=== PATIENT | female | born 1985 | race Caucasian/White ===

== ENCOUNTER → 2019-05-27 21:06 | Outpatient (CLI) | payer MEDICAID, SELFPAY ==
[2019-05-27 22:32] LABS: hCG Titer Quant., Serum 171 mIU/mL (1-3)
== END ==
PROVIDERS: Family Provider Family Medicine; PCP Family Medicine; Visit Provider Obstetrics & Gynecology
DX: O20.0 Threatened abortion (principal); Z3A.00 Weeks of gestation of pregnancy not specified
CPT/HCPCS: 36415; 84702

== ENCOUNTER 2019-06-06 12:49 | Emergency (ER) | payer MEDICAID, SELFPAY ==
[2019-06-06 12:50] VITALS: BP 108/66; PULSE 91; RESP 18; TEMP 36.8; O2SAT 99; BMI 28.5
[2019-06-06 14:02] LABS: Bacteria 0 SEEN /hpf (None Seen); Color, Urine Yellow (Yellow); Glucose, Dipstick Normal (Normal); Ketone-Dipstick Negative (Negative); Leukocyte Esterase-Dipstick Negative /ul (Negative); Mucous, Urine 0 SEEN /hpf (<or=2+); Nitrite-Dipstick Negative (Negative); Occult Blood-Urine 25 /ul (Negative); Protein-Dipstick Negative (Negative); Red Blood Cells-Urine 0 SEEN /hpf (0-5); Urine Bilirubin Dipstick Negative (Negative); Urine Clarity Clear (Clear); Urine Urobilinogen Normal (Normal); Urine pH 6.5 (5.0 - 8.0); White Blood Cells 0 SEEN /hpf (0-5)
[2019-06-06 14:20] LABS: Squamous Epithelial Cells - UA 0-5 SEEN /hpf (5-10)
--- NOTE | 2019-06-06 14:39 | US_ITS ---
STUDY: FIRST TRIMESTER OBSTETRICAL ULTRASOUND REASON FOR EXAM: Female, 33 years old pain and bleeding LMP: TECHNIQUE: Transvaginal TECHNICAL QUALITY: Adequate. PRIOR ULTRASOUND: None. FINDINGS: There is visualization of a single gestational sac in a normal intrauterine position. The mean sac diameter (MSD) measures 4.6 mm, indicating an estimated gestational age (EGA) of 5 weeks, 0 days. The gestational sac shape is within normal limits. There is a visualized yolk sac. The yolk sac measures 3.1 mm. The placenta is non-visualized. No pole visualized at this time. The estimated gestation age (EGA) by LMP is 5 weeks, 3 days. The estimated date of delivery (DANISHA) by LMP February 03, 2020. The estimated gestation age (EGA) by US is 5 weeks, 0 days. The estimated date of delivery (DANISHA) by US is February 06, 2020. The uterus measures 8.7 x 4.8 x 4.5 cm. There is no demonstrated uterine fibroid. The cervix is closed. The right ovary measures 2.6 x 1.8 x 1.4 cm. There is no right ovarian cyst. There is no visualized right adnexal mass or complex lesion. The left ovary measures 3.4 x 2.1 x 1.3 cm. There is no left ovarian cyst. There is no visualized left adnexal mass or complex lesion. There is no fluid in the cul de sac. US/Transvaginal w/Preg US IMPRESSION: Early intrauterine gestation without evidence for pole at this time. Recommend clinical correlation and follow-up Electronically Signed: Candelario Cage MD at 16:10 EDT , Service support ,
[2019-06-06 15:10] LABS: Absolute Lymphocyte Count 1.89 X10^3/uL (0.83-4.51); Absolute Neutrophil Count 4.8 X10^3/uL (2.0-7.7); Basophil# 0.03 X10^3/uL; Basophil% 0.4 % (0-1); Eosinophil# 0.15 X10^3/uL; Hemoglobin 14.2 g/dL (12.0-15.0); Lymphocyte # 1.89 X10^3/ul (4.0); Lymphocyte % 25.7 % (19-41); Mean Corp Hgb Conc 33.8 g/dL (32-36); Mean Corpuscular Hgb 30.1 pg (27.0-32.0); Mean Corpuscular Volume 89.2 fL (81-99); Mean Platelet Vol. 11.2 fl (6.2-12.0); Monocyte# 0.41 X10^3/uL; Monocyte% 5.6 % (0-10); NRBC Flagged by Analyzer 0 % (0-5); Neutrophil # 4.83 X10^3/uL (2.7-7.7); Neutrophil % 65.9 % (47-70); Platelet Count 201 K/mm3 (150-450); RBC Distribution Width CV 12.9 % (11.6-14.6); RBC Distribution Width SD 42.5 fl (35.1-43.9); Red Blood Count 4.71 M/mm3 (4.2-5.4); White Blood Count 7.3 K/mm3 (4.4-11.0)
[2019-06-06 15:44] LABS: hCG Titer Quant., Serum 616 mIU/mL (1-3)
[2019-06-06 16:12] VITALS: BP 106/68; PULSE 78; RESP 16; O2SAT 100
--- NOTE | 2019-06-06 16:19 | ED.VISSUMM ---
- ER Visit Summary Date of Service: 06/06/19 Chief Complaint: [Pelvic pain and vaginal bleeding] History of Present Illness: The patient is a 33 F [presents to the emergency department with complaint of vaginal bleeding that started this morning. Patient complains of pain to the left lower pelvic area. Patient states that she believes that she is about 6 weeks . Patient has had positive test and 2 weeks ago was at [facility] where they did Quants and noted that her quant was 70. Patient had a pelvic ultrasound at that time but no gestational sac was seen. She had a repeat quantitative hCG 2 days later and it had doubled to 170. Patient states that she has been doing relatively well but over the last several days she has had increased discomfort to the left pelvic region and today started bleeding. On arrival to the emergency department she states that her vaginal bleeding has ceased. Continues to complain of pain. Patient is G2, P1. Last menstrual period was April 29.] Physical Examination: [HEENT-PERRLA, EOMI. Cranial nerves II through XII grossly intact. TMs clear. Mucous membranes moist. No adenopathy. Cardiovascular-regular rate and rhythm without murmur or ectopy Lungs-clear to auscultation, chest wall stable without crepitus or subcu emphysema Abdomen-normoactive bowel sounds, soft. Patient has tenderness palpation over left lower quadrant with some guarding. There is no rebound, rigidity, or perineal signs. Extremities-intact ?4, normal range of motion, normal pulses, atraumatic] Test Results: [CBC with differential is normal. Quantitative hCG was 616. Patient is O+ blood type. Ultrasound performed showed early intrauterine gestation with no pole she was measuring 5 weeks 3 days.] Emergency Department Course and Treatment: [Patient case was discussed with Dr. Leonardo who is the patient's RN DOCUMENTATION SPECIALIST. Patient to call the office to get a repeat quantitative hCG in 2 days.] Treatment Plan: [We will up with RN DOCUMENTATION SPECIALIST for repeat quant in 2 days. Patient given a prescription for few [place] for pain.] Disposition: [Discharged home in stable condition] Impression: [Threatened with first trimester bleeding] This note was generated with [employer] software. It may contain incorrect words, spelling, and punctuation that were not noted in review of the chart prior to signing ED Disposition - Plan for ED Patient: Referrals: Jose Luis Taylor [Primary Care Provider] -
--- NOTE | 2019-06-06 16:23 | DCINST.ED_ITS ---
ED Disposition - Plan for ED Patient: Instructions: POSSIBLE MISCARRIAGE (Threatened ) Prescriptions: Hydrocodone Bitart/Apap 5-325 [Yellow Jacket 5MG-325MG] 1 tab PO Q4H PRN PRN 2 Days #10 tab PRN Reason: Pain Prescription Printed Referrals: Jose Luis Taylor [Primary Care Provider] - Urvashi Leonardo MD [STAFF PHYSICIAN] - 1-2 Weeks Additional Instructions: call office to have repeat Quant performed in 48hrs
== END 2019-06-06 16:30 | disposition home or self-care (01) ==
PROVIDERS: Emergency Provider Emergency Medicine; Family Provider Family Medicine; PCP Family Medicine
DX: O20.0 Threatened abortion (principal); R10.2 Pelvic and perineal pain; Z3A.01 Less than 8 weeks gestation of pregnancy
CPT/HCPCS: 76817; 81001; 84702; 85025; 86900; 86901; 99282; A4216

== ENCOUNTER → 2019-06-08 13:47 | Outpatient (CLI) | payer MEDICAID, SELFPAY ==
[2019-06-06 12:50] VITALS: BMI 28.5
[2019-06-08 15:25] LABS: hCG Titer Quant., Serum 66 mIU/mL (1-3)
== END ==
PROVIDERS: Family Provider Family Medicine; PCP Family Medicine; Referring Provider Obstetrics & Gynecology; Visit Provider Obstetrics & Gynecology
DX: O20.0 Threatened abortion (principal); Z3A.00 Weeks of gestation of pregnancy not specified
CPT/HCPCS: 36415; 84702

== ENCOUNTER → 2019-06-13 10:41 | Outpatient (CLI) | payer MEDICAID, SELFPAY ==
[2019-06-06 12:50] VITALS: BMI 28.5
[2019-06-13 12:04] LABS: hCG Titer Quant., Serum 6 mIU/mL (1-3)
== END ==
PROVIDERS: Family Provider Family Medicine; PCP Family Medicine; Referring Provider Obstetrics & Gynecology; Visit Provider Obstetrics & Gynecology
DX: O20.0 Threatened abortion (principal); Z3A.00 Weeks of gestation of pregnancy not specified
CPT/HCPCS: 36415; 84702

== ENCOUNTER → 2020-04-07 15:12 | Outpatient (CLI) | payer MEDICAID, SELFPAY ==
[2020-04-07 16:44] LABS: hCG Titer Quant., Serum 6905 mIU/mL (1-3)
== END ==
PROVIDERS: PCP Family Medicine; Referring Provider Obstetrics & Gynecology; Visit Provider Obstetrics & Gynecology
DX: O20.0 Threatened abortion (principal); Z3A.00 Weeks of gestation of pregnancy not specified
CPT/HCPCS: 36415; 84702

== ENCOUNTER 2020-04-10 12:18 | Day surgery (SDC) | payer MEDICAID, SELFPAY ==
[2020-04-10] VITALS (7 sets, daily range): BP systolic 87–103; BP diastolic 54–65; PULSE 46–66; RESP 14–16; TEMP 36.2–36.8; O2SAT 94–99; BMI 28.5; BMI 31.2
[2020-04-10] MEDS: Doxycycline 100 MG CAPSULE PO (13:00)
--- NOTE | 2020-04-10 13:00 | POC_PTH ---
PATIENT: XIMENA BECK [place] [facility] [id number] AGE/SX: 34/F ROOM: RE04/10/[address]: Dr. Urvashi Leonardo MD : 1985 BED: DIS: 04/10/2020 SPEC #: [id number] RECD: 04/10/20 14:58 STATUS: RODRIGO LORNA #: [id number] ERIC: 04/10/20 13:[address]: Urvashi Leonardo DEPT: SURGICAL PATHOLOGY RECD BY: Geovani Ledesma ENTERED: 04/11/20 08:54 SP TYPE: PROD CONC OTHR DR: Jose Luis Taylor Tissues: Product of conception, NOS Procedures: Surgery Specimen Level IV HEADER OPERATION: Suction dilation and curettage PRE-OP DIAGNOSIS: Incomplete TISSUE SUBMITTED: Products of conception MICROSCOPIC DIAGNOSIS Endometrium, curettage: Chorionic villi, decidualized stroma and trophoblastic cells consistent with products of conception. AM:jose 04/14/20 MICROSCOPIC DESCRIPTION Slides are reviewed. GROSS DESCRIPTION Received in fixative is one container labeled with the patient's name and designated products of conception. The specimen consists of multiple irregular fragments of light to dark frank soft tissue that in aggregate measure 5.5 x 4 x 0.8 cm. parts are not grossly recognized. Allergist/Pediatric Pulmonologist portions are submitted in two cassettes. / AM:jose 04/11/20 TC:5 CPT: 05334
[2020-04-10 13:04] LABS: Absolute Lymphocyte Count 1.81 X10^3/uL (0.83-4.51); Absolute Neutrophil Count 4.5 X10^3/uL (2.0-7.7); Basophil# 0.02 X10^3/uL; Basophil% 0.3 % (0-1); Eosinophil# 0.04 X10^3/uL; Eosinophils% 0.6 % (0-5); Hematocrit 39.7 % (37-47); Hemoglobin 13.2 g/dL (12.0-15.0); Lymphocyte # 1.81 X10^3/ul (4.0); Lymphocyte % 26.7 % (19-41); Mean Corp Hgb Conc 33.2 g/dL (32-36); Mean Corpuscular Hgb 29.5 pg (27.0-32.0); Mean Corpuscular Volume 88.6 fL (81-99); Mean Platelet Vol. 11.4 fl (6.2-12.0); Monocyte# 0.38 X10^3/uL; Monocyte% 5.6 % (0-10); NRBC Flagged by Analyzer 0 % (0-5); Neutrophil # 4.51 X10^3/uL (2.7-7.7); Neutrophil % 66.5 % (47-70); Platelet Count 206 K/mm3 (150-450); RBC Distribution Width CV 12.6 % (11.6-14.6); RBC Distribution Width SD 40.3 fl (35.1-43.9); Red Blood Count 4.48 M/mm3 (4.2-5.4); White Blood Count 6.8 K/mm3 (4.4-11.0)
--- NOTE | 2020-04-10 13:17 | PCM.HPOB.BLA ---
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 Urvashi Leonardo MD) Smoking Status: Current every day smoker additional social history: - Pollo (Marisela Squires) Patient and take care of his sister's children-Delifno/Marika/Kaila/Calli HPI F/U SAB: Details: XIMENA SCHWARTZ is a 34 year old who presents for incomplete . she was seen at [facility] ER and diagnosed with 7 week Ab with no fht seen. [place] [id number] now and she is still having intemrittently heavy bleeding. bedside ultrasound today shows collapsing sac 15mm in size with debris, open cervix. she is wanting surgical management Female Reproductive History Menopausal Symptoms: No night sweats Pregancy History 3 Elective abortions Hx Para 1 Spontaneous abortions 2 Hx # Term Pregnancies Ectopic pregnancies Hx # Pregnancies Multiple births # of living children 1 Past Pregnancies Del. Date Name GA/Weeks Outcome Route Bth Weight Gen Labor Lgth Anesthesia Del Locatn Provider FOB 03/08/07 [facility] 41 live - full term 7lbs 11oz Male epidural [facility] Dr. Dickens Delivery Date: 03/08/07 On 04/10/20 @ 11:28 Jacquelyn Urbina Started having contractions at 5 months ROS Const Constitutional: Denies fatigue, night sweats, weight gain or weight loss ENT ENT: Reports system reviewed and no additional complaints, except as docu Cardio Card: Denies chest pain Resp Resp: Denies cough or dyspnea GI GI: Reports as per HPI; denies abdominal pain, constipation, nausea or vomiting : Denies nipple discharge, urinary frequency, urinary incontinence, urinary hesitancy, urinary urgency, vaginal discharge, vaginal dryness, vaginal odor or vaginal itching Musc Musc: Denies joint pain, back pain or muscle weakness Skin Skin/Breast: Denies hair loss, change in hair, dry skin, breast lump, breast pain, breast skin changes or nipple discharge Neuro Neuro: Reports system reviewed and no additional complaints, except as docu Psych Psych: Reports system reviewed and no additional complaints, except as docu Endo Endo: Denies cold intolerance, excessive sweating, heat intolerance or increased thirst Vladislav/Lymph Hematologic/Lymphatic: Denies easy bleeding, Denies easy bruising, Denies enlarged lymph nodes Exam Const General: cooperative, healthy appearing, comfortable, no acute distress, well developed Orientation: alert [facility] Head: normal to inspection, normocephalic Ears: hearing grossly normal bilaterally, external ears normal Nose: external nose normal, nares normal Face and sinus: normal facial exam Neck Neck: normal visual inspection, no lymphadenopathy Thyroid: thyroid normal Chest Chest palpation & inspection: normal inspection of the chest Resp Effort & Inspection: normal respiratory effort Auscultation: clear to auscultation bilaterally Cardio Rate: regular rate Rhythm: regular rhythm Heart Sounds: S1 normal, S2 normal GI Inspection: normal to inspection, non-distended Palpation: soft, no hepatosplenomegaly General: bladder normal to palpation External Female Exam: normal external appearance, normal appearance of the urethra Urethra: normal appearance of the urethra, normal palpation Speculum Exam - Vagina: normal appearance of the vagina, vaginal bleeding Speculum Exam - Cervix: normal appearance of the cervix, nontender Bimanual Exam- Vagina & Uterus: normal bimanual exam, uterine size normal, bladder normal to palpation, uterine shape normal, No cervical tenderness, uterine mobility normal, uterine consistency normal, normal cervical palpation, uterus non-tender Bimanual Exam- Adnexa, other: normal adnexae, adnexae mobile, no adnexal masses, pelvic support normal Pelvic Support: normal OB/External & Speculum: vaginal bleeding Speculum Exam: vaginal bleeding Musc Other: gross motor intact no deficits, full bilateral strength Skin General: no rashes or lesions noted Neuro General: alert, awake, moves all extremities, no focal motor deficits Motor: muscle tone normal throughout Extrem General: normal to inspection, no pedal edema Psych Appearance: grossly normal Mental Status: mental status grossly normal Affect: normal affect Speech and Movement: speech and movement normal Assessment & Plan Problems 1. Incomplete O03.4 Plan Discussed risks of surgery including risks of anesthesia, bleeding, infection, uterine perforation, possible laparoscopy if this happens due to risk of injury to bowel, bladder or vasculature. proceed with surgery now. Coding Level of Care Code Off vis,new,level 5 Diagnoses Incomplete O03.4
[2020-04-10] MEDS: Lactated Ringers 1,000 ML 100 ML IV (13:21)
--- NOTE | 2020-04-10 13:51 | PCM.OPRPT ---
Problem List (1) Incomplete Status: Acute Report of Operation Date of Procedure: 04/10/20 Pre-Operative Diagnosis: incomplete Post-Operative Diagnosis: same Surgery/Procedure Performed:: suction d and c Description of Surgical Findings:: 7 week incomplete Type of Anesthesia:: Local MAC Special Medications: toradol Specimen's removed: poc Drains: none Estimated Blood Loss (mL): 50 Fluids Replaced: crystalloid Description of Procedure: Patient was taken to the operating room and placed under MAC local anesthesia. She was prepped and draped in the normal sterile fashion the dorsal lithotomy position. Bladder was drained of clear urine and anterior lip of the cervix was grasped and the uterus sounded to 8 cm. Cervix was progressively dilated to allow passage of a 8suction curette. Progressive passes were made removing the retained products of conception without complication. Sharp curettage confirmed complete removal of the retained products. All instruments were removed from the vagina and excellent hemostasis was noted and the patient was taken to recovery in stable condition. Grafts/Implants Used: none - Complications none Multi Select Codes - Urinary/Genital Urinary/Genital CPT Codes: 91139 Trmt of incomplete Ab, any TM
--- NOTE | 2020-04-10 14:03 | DCINST_ITS ---
Discharge Diet: No Restrictions Discharge Activity: Return to Normal Activity, May Shower, May Take a Tub Bath Allergies/Adverse Reactions: Allergies codeine Allergy (Verified 04/10/20 11:10) Itching Medications to take at Discharge NK 04/10/20 Primary Care Physician: Jose Luis Taylor [Primary Care Provider] - Test Results: Test results from this visit will be discussed in further detail at your follow- up appointment, if applicable. Please Follow Up With: Urvashi Leonardo MD - [phone]
== END 2020-04-10 15:21 | disposition home or self-care (01) ==
LOC: SDC 12:20 → AC 12:21
PROVIDERS: PCP Family Medicine; Referring Provider Obstetrics & Gynecology; Visit Provider Obstetrics & Gynecology
PROC: (CPT 59812; principal; 2020-04-10 12:45)
DX: O03.4 Incomplete spontaneous abortion without complication (principal); K21.9 Gastro-esophageal reflux disease without esophagitis; F17.200 Nicotine dependence, unspecified, uncomplicated
CPT/HCPCS: 01965; 59812; 36415; 85025; 86850; 86900; 86901; 88305; J7120; J2405

== ENCOUNTER → 2020-04-28 09:58 | Outpatient (CLI) | payer MEDICAID, SELFPAY ==
[2020-04-24 15:51] VITALS: BMI 31.2
[2020-04-28 10:57] LABS: hCG Titer Quant., Serum 3 mIU/mL (1-3)
[2020-04-30 04:07] LABS: Dilute Prothrombin Time (dPT) 36.9 sec (0.0-55.0); Dilute Russell Viper Venom 34.2 sec (0.0-47.0); PTT-LA 39.2 sec (0.0-51.9); Thrombin Time 17.1 sec (0.0-23.0); dPT Confirm Ratio 0.95 Ratio (0.00-1.40)
[2020-04-30 05:35] LABS: Anti-Cardiolipin Ab, IgA, Qn < 9 APL U/mL (0-11); Anti-Cardiolipin Ab, IgG, Qn < 9 GPL U/mL (0-14); Anti-Cardiolipin Ab, IgM, Qn < 9 MPL U/mL (0-12); Beta-2-Glycoprotein I IgA <9 (0-25); Beta-2-Glycoprotein I IgG <9 (0-20); Beta-2-Glycoprotein I IgM <9 (0-32); Interpretation Comment: (.)
== END ==
PROVIDERS: PCP Family Medicine; Referring Provider Obstetrics & Gynecology; Visit Provider Obstetrics & Gynecology
DX: N96 Recurrent pregnancy loss (principal); N91.2 Amenorrhea, unspecified
CPT/HCPCS: 36415; 84702; 86146; 86147

== ENCOUNTER → 2020-10-29 13:27 | Outpatient (CLI) | payer MEDICAID, SELFPAY ==
[2020-04-24 15:51] VITALS: BMI 31.2
[2020-10-29 15:41] LABS: hCG Titer Quant., Serum 152 mIU/mL (1-3)
== END ==
PROVIDERS: PCP Family Medicine; Referring Provider Nurse Practitioner Women's Health; Visit Provider Nurse Practitioner Women's Health
DX: N91.2 Amenorrhea, unspecified (principal)
CPT/HCPCS: 36415; 84702

== ENCOUNTER → 2020-10-31 11:17 | Outpatient (CLI) | payer MEDICAID, SELFPAY ==
[2020-04-24 15:51] VITALS: BMI 31.2
[2020-10-31 13:14] LABS: hCG Titer Quant., Serum 352 mIU/mL (1-3)
== END ==
PROVIDERS: PCP Family Medicine; Referring Provider Nurse Practitioner Women's Health; Visit Provider Nurse Practitioner Women's Health
DX: N91.2 Amenorrhea, unspecified (principal)
CPT/HCPCS: 36415; 84702

== ENCOUNTER → 2020-11-03 10:27 | Outpatient (CLI) | payer MEDICAID, SELFPAY ==
[2020-04-24 15:51] VITALS: BMI 31.2
[2020-11-03 12:44] LABS: hCG Titer Quant., Serum 946 mIU/mL (1-3)
== END ==
PROVIDERS: Obstetrics & Gynecology; PCP Family Medicine; Referring Provider Nurse Practitioner Women's Health; Visit Provider Nurse Practitioner Women's Health
DX: N91.2 Amenorrhea, unspecified (principal)
CPT/HCPCS: 36415; 84702

== ENCOUNTER → 2020-11-07 07:41 | Outpatient (CLI) | payer MEDICAID, SELFPAY ==
[2020-04-24 15:51] VITALS: BMI 31.2
--- NOTE | 2020-11-07 07:59 | US_ITS ---
STUDY: FIRST TRIMESTER OBSTETRICAL ULTRASOUND REASON FOR EXAM: Female, 35 years old viability LMP: 10/01/2020. TECHNIQUE: Transvaginal TECHNICAL QUALITY: Adequate. PRIOR ULTRASOUND: None. FINDINGS: There is visualization of a single gestational sac in a normal intrauterine position. The mean sac diameter (MSD) measures 8.3 mm, indicating an estimated gestational age (EGA) of 5 weeks, 4 days. The gestational sac shape is within normal limits. There is a visualized yolk sac. The yolk sac measures 2.7 mm. The placenta is non-visualized. There is no demonstrated embryo ( pole). The estimated gestation age (EGA) by LMP is 5 weeks, 2 days. The estimated date of delivery (DANISHA) by LMP is 07/08/2021. The estimated gestation age (EGA) by US is 5 weeks, 4 days. The estimated date of delivery (DANISHA) by US is 07/06/2021. The uterus measures 8.1 cm x 5.4 cm x 4.9 cm. There is no demonstrated uterine fibroid. The cervix is closed. The right ovary measures 2.4 cm x 2.2 cm x 1.5 cm. There is no right ovarian cyst. There is no visualized right adnexal mass or complex lesion. The left ovary measures 2.5 cm x 3 cm x 2.2 cm. There is a 1.5 cm x 1.4 cm x 1.7 cm corpus luteum cyst. There is no visualized left adnexal mass or complex lesion. There is no fluid in the cul de sac. US/Transvaginal w/Preg US IMPRESSION: Single intrauterine gestational sac with a mean gestational age of 5 weeks and 4 days. 1.5 sided by 1.4 cm x 1.7 cm left corpus luteum cyst. Electronically Signed: Jaun Rivero MD at 13:00 EDT , Service support ,
== END ==
PROVIDERS: PCP Family Medicine; Referring Provider Obstetrics & Gynecology; Visit Provider Obstetrics & Gynecology
DX: Z34.90 Encounter for supervision of normal pregnancy, unspecified, unspecified trimester (principal)
CPT/HCPCS: 76817

== ENCOUNTER → 2020-11-17 07:51 | Outpatient (CLI) | payer MEDICAID, SELFPAY ==
[2020-04-24 15:51] VITALS: BMI 31.2
--- NOTE | 2020-11-17 07:54 | US_ITS ---
INDICATION: dating EXAMINATION: US OB Transvaginal TECHNIQUE: Transvaginal (for optimal evaluation of the adnexa) pelvic ultrasound was performed. Grayscale, spectral waveform, and color flow Doppler evaluation of the adnexa. COMPARISON: None. FINDINGS: UTERUS: Measures 8.8 x 6 x 5.2 cm. RIGHT OVARY: Measures 2.3 x 2.2 x 1.3 cm. Normal. LEFT OVARY: Measures 2.7 x 2.7 x 2.1 cm. Corpus luteal cyst in the left ovary.. FREE FLUID: None. INTRAUTERINE GESTATIONAL SAC(s) (size/shape): Single. Mean sac diameter of 2.5 cm. YOLK SAC: Identified POLE: Identified CRL measures 0.8 cm. ESTIMATED GESTATION AGE: 7 weeks 1 day. HEART MOTION: 112 bpm. PLACENTA: Not visualized due to age. SUBCHORIONIC HEMORRHAGE: None. AMNIOTIC FLUID: Qualitatively normal. US/Transvaginal w/Preg US IMPRESSION: Single live intrauterine . Estimated gestational age is 7 weeks 1 day. Electronically Signed: Mekhi Ariza MD at 20:05 EDT Tel , Service support ,
== END ==
PROVIDERS: PCP Family Medicine; Referring Provider Obstetrics & Gynecology; Visit Provider Obstetrics & Gynecology
DX: Z34.90 Encounter for supervision of normal pregnancy, unspecified, unspecified trimester (principal)
CPT/HCPCS: 76817

== ENCOUNTER → 2020-11-28 | Outpatient (CLI) | payer MEDICAID, SELFPAY ==
[2020-11-28 13:11] VITALS: BMI 34.7
[2020-11-28 18:04] LABS: Amphetamine Urine VISTA NEGATIVE (<1000 ng/mL); Barbiturate Urine VISTA NEGATIVE (< 200 ng/mL); Benzodiazepine Urine VISTA NEGATIVE (< 200 ng/mL); Cocaine Urine VISTA NEGATIVE (< 300 ng/mL); Ecstacy Urine VISTA NEGATIVE (< 500 ng/mL); Methadone Urine VISTA NEGATIVE (< 300 ng/mL); PCP Urine VISTA NEGATIVE (< 25 ng/mL); THC Urine VISTA NEGATIVE (< 50 ng/mL); Vista UDS pH Range 7
[2020-12-02 03:07] LABS: Chlamydia By Nucleic Acid AMP Negative (Negative)
[2020-12-02 11:27] LABS: Gonococcus By Nucleic Acid AMP Negative (Negative)
[2020-12-05 03:07] LABS: HPV Genotype 16, Aptima Negative (Negative)
[2020-12-05 09:15] LABS: HPV APTIMA, High Risk Positive (Negative); HPV Genotype 18,45 Aptima Negative (Negative)
== END | disposition home or self-care (01) ==
PROVIDERS: PCP Family Medicine; Referring Provider Obstetrics & Gynecology; Visit Provider Obstetrics & Gynecology
DX: Z34.90 Encounter for supervision of normal pregnancy, unspecified, unspecified trimester (principal)
CPT/HCPCS: 80307; 87086; 87088; 87491; 87591; 87624; 88175; G0145

== ENCOUNTER → 2020-12-26 09:16 | Outpatient (CLI) | payer MEDICAID, SELFPAY ==
[2020-12-26 08:49] VITALS: BMI 34.7
[2020-12-26 10:17] LABS: Absolute Lymphocyte Count 1.42 X10^3/uL (0.83-4.51); Absolute Neutrophil Count 7.4 X10^3/uL (2.0-7.7); Basophil# 0.02 X10^3/uL; Basophil% 0.2 % (0-1); Eosinophil# 0.05 X10^3/uL; Eosinophils% 0.5 % (0-5); Hematocrit 39.6 % (37-47); Hemoglobin 13.1 g/dL (12.0-15.0); Lymphocyte # 1.42 X10^3/ul (0.83-4.51); Lymphocyte % 15.2 % (19-41); Mean Corp Hgb Conc 33.1 g/dL (32-36); Mean Corpuscular Hgb 28.7 pg (27.0-32.0); Mean Corpuscular Volume 86.7 fL (81-99); Mean Platelet Vol. 10.9 fl (6.2-12.0); Monocyte# 0.35 X10^3/uL; Monocyte% 3.7 % (0-10); NRBC Flagged by Analyzer 0 % (0-5); Neutrophil # 7.44 X10^3/uL (2.7-7.7); Neutrophil % 79.5 % (47-70); Platelet Count 258 K/mm3 (150-450); RBC Distribution Width CV 13.2 % (11.6-14.6); RBC Distribution Width SD 41.5 fl (35.1-43.9); Red Blood Count 4.57 M/mm3 (4.2-5.4); White Blood Count 9.4 K/mm3 (4.4-11.0)
[2020-12-26 10:21] LABS: Glucose Challenge Gest 1H 50g 133 mg/dL (70-140)
[2020-12-26 10:54] LABS: NATERA MAILED SPECIMEN
[2020-12-26 12:39] LABS: HIV - WCH Non-Reactive (Nonreactive); Hepatitis B Surface Antigen Non-Reactive (Nonreactive); Hepatitis C Antibody Non-Reactive (Nonreactive); Rubella IgG Reactive (Nonreactive); Syphilis Antibodies Non-reactive
== END ==
PROVIDERS: PCP Family Medicine; Referring Provider Obstetrics & Gynecology; Visit Provider Obstetrics & Gynecology
DX: Z34.81 Encounter for supervision of other normal pregnancy, first trimester (principal); Z31.430 Encounter of female for testing for genetic disease carrier status for procreative management
CPT/HCPCS: 36415; 82950; 85025; 86703; 86762; 86780; 86803; 86850; 86900; 86901; 87340

== ENCOUNTER → 2021-01-23 08:29 | Outpatient (CLI) | payer MEDICAID, SELFPAY ==
[2021-01-23 08:12] VITALS: BMI 34.7
== END ==
PROVIDERS: PCP Family Medicine; Referring Provider Obstetrics & Gynecology; Visit Provider Obstetrics & Gynecology
DX: Z36.9 Encounter for antenatal screening, unspecified (principal)
CPT/HCPCS: 36415

== ENCOUNTER → 2021-01-27 13:08 | Outpatient (CLI) | payer MEDICAID, SELFPAY ==
[2021-01-23 08:12] VITALS: BMI 34.7
[2021-01-27 13:36] LABS: Absolute Lymphocyte Count 2.01 X10^3/uL (0.83-4.51); Absolute Neutrophil Count 8.3 X10^3/uL (2.0-7.7); Basophil# 0.04 X10^3/uL; Basophil% 0.4 % (0-1); Eosinophil# 0.06 X10^3/uL; Eosinophils% 0.5 % (0-5); Hematocrit 36.6 % (37-47); Hemoglobin 12.6 g/dL (12.0-15.0); Lymphocyte # 2.01 X10^3/ul (0.83-4.51); Lymphocyte % 18.3 % (19-41); Mean Corp Hgb Conc 34.4 g/dL (32-36); Mean Corpuscular Hgb 29.9 pg (27.0-32.0); Mean Corpuscular Volume 86.7 fL (81-99); Mean Platelet Vol. 10.9 fl (6.2-12.0); Monocyte# 0.46 X10^3/uL; Monocyte% 4.2 % (0-10); NRBC Flagged by Analyzer 0 % (0-5); Neutrophil # 8.34 X10^3/uL (2.7-7.7); Neutrophil % 75.8 % (47-70); Platelet Count 247 K/mm3 (150-450); RBC Distribution Width CV 13.2 % (11.6-14.6); RBC Distribution Width SD 41.3 fl (35.1-43.9); Red Blood Count 4.22 M/mm3 (4.2-5.4)
[2021-01-27 13:59] LABS: Cholesterol 252 mg/dL (200); Glucose Challenge Gest 1H 50g 106 mg/dL (70-140); High Density Lipoprotein 101 mg/dL; Triglycerides 181 mg/dL; Very Low Density Lipoprotein 36 mg/dL (5-40)
== END ==
PROVIDERS: PCP Family Medicine; Referring Provider Obstetrics & Gynecology; Visit Provider Obstetrics & Gynecology
DX: Z13.220 Encounter for screening for lipoid disorders (principal); Z13.1 Encounter for screening for diabetes mellitus; Z3A.16 16 weeks gestation of pregnancy
CPT/HCPCS: 36415; 80061; 82950; 85025

== ENCOUNTER 2021-04-07 18:08 | Outpatient (CLI) | payer MEDICAID, SELFPAY ==
[2021-04-07 18:20] VITALS: BP 116/67; PULSE 107; TEMP 36.6; O2SAT 97; BMI 38.8
[2021-04-07 19:28] LABS: Color, Urine Yellow (Yellow); Glucose, Dipstick Normal (Normal); Ketone-Dipstick Negative (Negative); Leukocyte Esterase-Dipstick 25 /ul (Negative); Nitrite-Dipstick Negative (Negative); Occult Blood-Urine 10 /ul (Negative); Protein-Dipstick 15 mg/dl (Negative); Specific Gravity, Urine 1.015 (1.002-1.030); Urine Bilirubin Dipstick Negative (Negative); Urine Clarity Sl. Cloudy (Clear); Urine Urobilinogen 1 mg/dl (Normal)
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
== END 2021-04-07 20:05 | disposition home or self-care (01) ==
LOC: WPOUT 18:14 → WP 18:19
PROVIDERS: PCP Family Medicine; Visit Provider Obstetrics & Gynecology
DX: O26.892 Other specified pregnancy related conditions, second trimester (principal); R30.0 Dysuria; O99.612 Diseases of the digestive system complicating pregnancy, second trimester; K21.9 Gastro-esophageal reflux disease without esophagitis; O99.332 Smoking (tobacco) complicating pregnancy, second trimester; F17.200 Nicotine dependence, unspecified, uncomplicated; Z87.440 Personal history of urinary (tract) infections; Z3A.27 27 weeks gestation of pregnancy
CPT/HCPCS: 59025; 59050; 81002; 87086; 87088; 99218; G0378

== ENCOUNTER → 2021-04-22 14:25 | Outpatient (CLI) | payer MEDICAID, SELFPAY ==
[2021-04-22 14:43] LABS: Absolute Lymphocyte Count 1.45 X10^3/uL (0.83-4.51); Basophil# 0.03 X10^3/uL; Basophil% 0.2 % (0-1); Eosinophil# 0.04 X10^3/uL; Eosinophils% 0.3 % (0-5); Hematocrit 39.1 % (37-47); Hemoglobin 13.2 g/dL (12.0-15.0); Lymphocyte # 1.45 X10^3/ul (0.83-4.51); Lymphocyte % 10.8 % (19-41); Mean Corp Hgb Conc 33.8 g/dL (32-36); Mean Corpuscular Hgb 29.3 pg (27.0-32.0); Mean Corpuscular Volume 86.7 fL (81-99); Mean Platelet Vol. 10.3 fl (6.2-12.0); Monocyte# 0.63 X10^3/uL; Monocyte% 4.7 % (0-10); NRBC Flagged by Analyzer 0 % (0-5); Neutrophil # 11.03 X10^3/uL (2.7-7.7); Neutrophil % 82.4 % (47-70); Platelet Count 280 K/mm3 (150-450); RBC Distribution Width CV 13.2 % (11.6-14.6); RBC Distribution Width SD 41.7 fl (35.1-43.9); Red Blood Count 4.51 M/mm3 (4.2-5.4); White Blood Count 13.4 K/mm3 (4.4-11.0)
[2021-04-22 15:04] LABS: Glucose Challenge Gest 1H 50g 132 mg/dL (70-140)
== END ==
PROVIDERS: PCP Family Medicine; Referring Provider Obstetrics & Gynecology; Visit Provider Obstetrics & Gynecology
DX: O09.90 Supervision of high risk pregnancy, unspecified, unspecified trimester (principal); Z13.1 Encounter for screening for diabetes mellitus; Z3A.00 Weeks of gestation of pregnancy not specified
CPT/HCPCS: 36415; 82950; 85025

== ENCOUNTER → 2021-04-28 | Outpatient (CLI) | payer MEDICAID, SELFPAY ==
[2021-04-28 12:44] LABS: ROM Internal Control Test YES-OK TO RESULT pt. (Internal QC); ROM Patient Test Negative (Negative)
== END | disposition home or self-care (01) ==
LOC: LABSPEC 04-29 08:13
PROVIDERS: PCP Family Medicine; Visit Provider Obstetrics & Gynecology
DX: Z34.93 Encounter for supervision of normal pregnancy, unspecified, third trimester (principal); Z3A.29 29 weeks gestation of pregnancy
CPT/HCPCS: 84112

== ENCOUNTER 2021-06-03 19:30 | Outpatient (CLI) | payer MEDICAID, SELFPAY ==
[2021-06-03 19:47] VITALS: PULSE 103; O2SAT 98
[2021-06-03 19:52] VITALS: PULSE 114; O2SAT 99
[2021-06-03 19:57] VITALS: PULSE 103; TEMP 37.1; O2SAT 98
[2021-06-03 20:02] VITALS: PULSE 107; O2SAT 99
[2021-06-03 20:05] VITALS: BP 114/76; PULSE 103
[2021-06-03 20:09] VITALS: BMI 38.0
[2021-06-03 20:49] LABS: ROM Internal Control Test YES-OK TO RESULT pt. (Internal QC); ROM Patient Test Negative (Negative)
--- NOTE | 2021-06-07 21:00 | OB.TRI.PN ---
Progress Notes Date of Service: 06/03/21 Progress Note: Patient presents for triage evaluation secondary to contractions pelvic pressure FHT: 140 Moderate variability reactive no decelerations category I tracing [place]: irregular Contractions Assessment and plan: false labor neg rom no cervical changes Reactive NST, reassuring maternal and status patient discharged to home to follow-up as scheudled. See problem list details for additional plan information. Laboratory Studies: Laboratory Tests 06/03/21 Range/Units 20:20 Vag Amniotic Fld Detect Negative (Negative) Charges/Coding Procedures Urinary/Genital 52xxx-59xxx: 18250-29 non-stress test Interp
== END 2021-06-03 21:45 | disposition home or self-care (01) ==
LOC: WPOUT 19:38 → WP 19:39
PROVIDERS: PCP Family Medicine; Visit Provider Obstetrics & Gynecology
DX: O47.9 False labor, unspecified (principal); Z3A.00 Weeks of gestation of pregnancy not specified
CPT/HCPCS: 59025; 59050; 84112; 99218; G0378

== ENCOUNTER → 2021-06-11 16:07 | Outpatient (CLI) | payer MEDICAID, SELFPAY ==
--- NOTE | 2021-06-11 16:09 | US_ITS ---
STUDY: SECOND AND THIRD TRIMESTER OBSTETRICAL ULTRASOUND - LIMITED REASON FOR EXAM: Female, 35 years old growth=LGA LMP: 09/28/2020 PRIOR ULTRASOUND: 11/17/2020 TECHNIQUE: Transabdominal TECHNICAL QUALITY: Adequate. FINDINGS: There is a single intrauterine fetus. The fetus is in a cephalic presentation. There is demonstrated cardiac activity with a heart rate of 155 bpm. There is a normal amniotic fluid volume. The largest amniotic fluid pocket measures 6.3 cm. The amniotic fluid index (EDWIGE) is 15.3 cm. The placenta is posterior in location and is not low lying. There are Grade 3 placental changes. The cervix measures 1.9 cm in length. BIOMETRY: BPD: 8.6 cm: 34 weeks, 4 days HC: 10.2 cm: 31 weeks, 3 days AC: 31.7 cm: 35 weeks, 4 days FL: 35.7 cm: 39 weeks, 4 days Age by LMP: 36 weeks, 4 days. DANISHA by LMP: 07/05/2021. age by current US: 35 weeks, 4 days. DANISHA by current US: 07/12/2021. Estimated weight: 3436 grams, +/- 515 grams, 90 percentile. Gender: US/OB Limited With Biometrics IMPRESSION: Living intrauterine of 35 weeks 4 days as described above. Electronically Signed: Austin Veloz MD at 9:32 EDT Tel , Service support ,
== END ==
PROVIDERS: PCP Family Medicine; Referring Provider Obstetrics & Gynecology; Visit Provider Obstetrics & Gynecology
DX: O36.63X0 Maternal care for excessive fetal growth, third trimester, not applicable or unspecified (principal); O99.330 Smoking (tobacco) complicating pregnancy, unspecified trimester; Z3A.35 35 weeks gestation of pregnancy
CPT/HCPCS: 76816

== ENCOUNTER → 2021-06-12 | Outpatient (CLI) | payer MEDICAID, SELFPAY | END | disposition home or self-care (01) | LOC: LABSPEC 14:57 | PROVIDERS: PCP Family Medicine; Visit Provider Obstetrics & Gynecology | DX: Z34.93 Encounter for supervision of normal pregnancy, unspecified, third trimester (principal); Z3A.36 36 weeks gestation of pregnancy | CPT/HCPCS: 87081 ==

== ENCOUNTER 2021-06-14 16:15 | Outpatient (CLI) | payer MEDICAID, SELFPAY ==
[2021-06-14 16:21] VITALS: BMI 38.9
[2021-06-14 16:36] VITALS: TEMP 36.6; O2SAT 98
[2021-06-14 16:37] VITALS: BP 131/78; PULSE 109
[2021-06-14 16:38] VITALS: PULSE 107; O2SAT 97
[2021-06-14 19:18] VITALS: PULSE 85; O2SAT 98
[2021-06-14 19:19] VITALS: BP 132/79; PULSE 81
[2021-06-14 19:23] VITALS: BP 132/79; PULSE 84; TEMP 36.7; O2SAT 98
--- NOTE | 2021-06-17 05:55 | OB.TRI.PN ---
Progress Notes Date of Service: 06/14/21 Progress Note: Patient presents for triage evaluation secondary to ctx and pelvic pain FHT: 130 Moderate variability reactive no decelerations category I tracing [place]: irregular Contractions Assessment and plan: false labor no cervical change Reactive NST, reassuring maternal and status patient discharged to home to follow-up as scheudled. See problem list details for additional plan information. Charges/Coding Procedures Urinary/Genital 52xxx-59xxx: 29489-91 non-stress test Interp Assessment & Plan (1) Pelvic pain affecting : COMMENT: supportive care
== END 2021-06-14 20:17 | disposition home or self-care (01) ==
LOC: WPOUT 16:19 → WP 16:20
PROVIDERS: PCP Family Medicine; Visit Provider Obstetrics & Gynecology
DX: O47.9 False labor, unspecified (principal); R10.2 Pelvic and perineal pain; Z3A.00 Weeks of gestation of pregnancy not specified
CPT/HCPCS: 59025; 59050; 99218; G0378

== ENCOUNTER 2021-06-18 09:12 | Outpatient (CLI) | payer MEDICAID, SELFPAY ==
[2021-06-18 09:31] VITALS: BP 122/74; PULSE 97; TEMP 37.4
[2021-06-18 09:37] VITALS: BMI 39.9
[2021-06-18] MEDS: Methocarbamol 500 MG Tablet 1000 MG PO (11:56)
--- NOTE | 2021-06-18 12:24 | MRI_ITS ---
STUDY: MR Spine Lumbar W/O Contrast 06/18/2021 3:04 PM REASON FOR EXAM: Female, 35 years old. Back pain weakness and pain lower back and legs after fall this am 38 weeks preg TECHNIQUE: MR Spine Lumbar W/O Contrast Standardized fat and water weighted pulse sequences were obtained. COMPARISON: None FINDINGS: T12-L1: Normal endplates. Normal disc height, hydration and morphology. Normal bilateral facet joints. Normal central canal and bilateral lateral recesses. Normal bilateral intervertebral neural foramina. Normal lumbar lordosis. There is no substantial scoliosis. Normal conus medullaris that terminates at the L1. L1-2: Normal endplates. Normal disc height and morphology. Normal central canal and intervertebral neuroforamina. There is bilateral facet arthropathy. L2-3: Normal endplates. Normal disc height and morphology. Normal central canal and intervertebral neuroforamina. There is bilateral facet arthropathy. L3-4: Normal endplates. Normal disc height and morphology. Normal central canal and intervertebral neuroforamina. There is bilateral facet arthropathy. L4-5: Normal endplates. Normal disc height and morphology. Normal central canal and intervertebral neuroforamina. There is bilateral facet arthropathy. L5-S1: Loss of intervertebral disc height. There is endplate spondylosis of the vertebral body. There is bilateral facet arthropathy. Central disc herniation. No spinal stenosis. Disc material measures 5 mm. Normal visualized sacral ala. Normal visualized paraspinous soft tissue structures. MRI/Spine Lumbar (Routine) IMPRESSION: Multilevel degenerative changes, as described above. L5-S1 demonstrates a central disc herniation. Electronically Signed: Ryland Hooks MD at 15:07 EDT , Service support ,
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
--- NOTE | 2021-06-18 16:38 | PCM.DC ---
Discharge Instructions Follow Up Care Test Results: Test results from this visit will be discussed in further detail at your follow-up appointment, if applicable. Discharge Plan Admission Reason For Visit: OBSERVATION FOR FALL Attending Provider: Urvashi Leonardo Primary Care Provider: Jose Luis Taylor Instructions Additional Instructions / Restrictions: follow up with Dr. Caruso at 8:15 tomorrow am. Discharge Orders/Prescriptions Prescriptions: New methocarbamol 750 mg tablet 750 mg PO Q8H PRN (Reason: pain) 10 Days Qty: 30 RF: 0 Continued PNV-DHA 27 mg iron-1 mg -300 mg capsule 1 cap PO DAILY RF: 0 miscellaneous medical supply Misc 1 ea miscellaneous .as needed Qty: 1 RF: 0 omeprazole 40 mg capsule,delayed release(DR/EC) 40 mg PO DAILY Qty: 30 RF: 4 sertraline 100 mg tablet 150 mg PO DAILY Qty: 45 RF: 12 Referrals / Follow Up: Jose Luis Taylor [Primary Care Provider] - Disposition Patient Disposition: Home, Self Care
== END 2021-06-18 16:45 | disposition home or self-care (01) ==
LOC: WPOUT 09:13 → WP 09:14
PROVIDERS: PCP Family Medicine; Visit Provider Obstetrics & Gynecology
DX: O09.93 Supervision of high risk pregnancy, unspecified, third trimester (principal); M51.27 Other intervertebral disc displacement, lumbosacral region; O99.613 Diseases of the digestive system complicating pregnancy, third trimester; K21.9 Gastro-esophageal reflux disease without esophagitis; O99.333 Smoking (tobacco) complicating pregnancy, third trimester; F17.200 Nicotine dependence, unspecified, uncomplicated; Z3A.38 38 weeks gestation of pregnancy
CPT/HCPCS: 59025; 59050; 72148; 99218; G0378

== ENCOUNTER 2021-06-25 22:45 | Outpatient (CLI) | payer MEDICAID, SELFPAY ==
[2021-06-25 23:04] VITALS: BP 118/78; PULSE 126; PULSE 99; TEMP 36.8; TEMP 37.1; O2SAT 81; O2SAT 96
[2021-06-25 23:06] VITALS: O2SAT 98
[2021-06-25 23:12] VITALS: BMI 40.5
[2021-06-25 23:53] LABS: ROM Internal Control Test YES-OK TO RESULT pt. (Internal QC)
[2021-06-25 23:54] LABS: ROM Patient Test Negative (Negative)
[2021-06-26 00:52] LABS: ROM Internal Control Test YES-OK TO RESULT pt. (Internal QC); ROM Patient Test Negative (Negative)
[2021-06-26] MEDS: hydrOXYzine PAM 25 MG Capsule 50 MG PO (01:34)
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
== END 2021-06-26 02:30 | disposition home or self-care (01) ==
LOC: WPOUT 22:54 → WP 22:55
PROVIDERS: PCP Family Medicine; Visit Provider Obstetrics & Gynecology
DX: O26.893 Other specified pregnancy related conditions, third trimester (principal); M51.26 Other intervertebral disc displacement, lumbar region; R10.2 Pelvic and perineal pain; O99.613 Diseases of the digestive system complicating pregnancy, third trimester; K21.9 Gastro-esophageal reflux disease without esophagitis; O99.333 Smoking (tobacco) complicating pregnancy, third trimester; F17.200 Nicotine dependence, unspecified, uncomplicated; Z79.899 Other long term (current) drug therapy; Z3A.38 38 weeks gestation of pregnancy
CPT/HCPCS: 59025; 59050; 84112; 99218; G0378

== ENCOUNTER 2021-06-26 18:20 | Inpatient (IN) | payer MEDICAID, SELFPAY ==
[2021-06-26] VITALS (28 sets, daily range): BP systolic 107–155; BP diastolic 60–93; PULSE 78–137; RESP 17; TEMP 36.1–36.8; O2SAT 78–100; BMI 40.5
[2021-06-26] MEDS: Lactated Ringers 1,000 ML 50 ML IV (18:40)
[2021-06-26] MEDS: Lactated Ringers 500 ML 999 ML IV (18:47)
[2021-06-26 19:04] LABS: Absolute Lymphocyte Count 1.34 X10^3/uL (0.83-4.51); Absolute Neutrophil Count 16.1 X10^3/uL (2.0-7.7); Basophil# 0.03 X10^3/uL; Basophil% 0.2 % (0-1); Eosinophil# 0.02 X10^3/uL; Eosinophils% 0.1 % (0-5); Hematocrit 37.2 % (37-47); Hemoglobin 12.5 g/dL (12.0-15.0); Lymphocyte # 1.34 X10^3/ul (0.83-4.51); Lymphocyte % 7.3 % (19-41); Mean Corp Hgb Conc 33.6 g/dL (32-36); Mean Corpuscular Volume 83.4 fL (81-99); Monocyte# 0.85 X10^3/uL; Monocyte% 4.6 % (0-10); NRBC Flagged by Analyzer 0 % (0-5); Neutrophil # 16.09 X10^3/uL (2.7-7.7); Neutrophil % 87.1 % (47-70); Platelet Count 226 K/mm3 (150-450); RBC Distribution Width CV 13.7 % (11.6-14.6); RBC Distribution Width SD 41.6 fl (35.1-43.9); Red Blood Count 4.46 M/mm3 (4.2-5.4); White Blood Count 18.5 K/mm3 (4.4-11.0)
[2021-06-26] MEDS: fentaNYL-bupivacaine (epidural) 100 ML BAG EPIDURAL (19:22)
[2021-06-26] MEDS: Oxytocin 30 units/NS 500 ml 30 UNITS/500 ML IV.SOLN IV (19:37)
[2021-06-26] MEDS: Oxytocin 30 units/NS 500 ml 30 UNITS/500 ML IV.SOLN 999 UNITS IV (19:59)
[2021-06-26] MEDS: Methylergonovine 0.2 MG/ML Ampul IM (20:03)
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
--- NOTE | 2021-06-26 20:16 | EX.PCM.OBRPT ---
Maternal Data Information DANISHA Calculator Estimated Delivery Date Method Current WG Current Estimate 07/08/21 LMP (Certain) 38w 2d Other Estimates 07/05/21 Ultrasound #1 38w 5d Vaginal Delivery Maternal Presentation Maternal Presentation: Active Labor Operative Information Pre-Operative Diagnosis: 38 weeks 2 days in active labor Post-Operative Diagnosis: 38 weeks 2 days in active labor Type of Anesthesia: Epidural Drain: Cullen to straight drain Estimated Blood Loss: 400cc Findings Description of Procedure: Patient began pushing and delivered the head in the OA presentation. The head was delivered atraumatically however the turtle sign was present and there was noted to be a dystocia of the right shoulder. The patient was immediately placed in the mcrobert's maneuver. After 10 seconds the brandon's maneuver was performed follow by suprapubic pressure, which ultimately aided in delivery of the anterior shoulder. The anterior and posterior shoulders delivered followed by the rest of the infant and the infant was placed on the maternal abdomen. Delayed cord clamping was employed for approximately 60 seconds. Cord was clamped and cut and gentle traction was applied to the cord and the placenta delivered spontaneously immediately following it was noted to be intact with three-vessel cord. The perineum and vagina were inspected and found to be intact. EBL was 400cc and the uterus was noted to be boggy. Uterine massage and pitocin were started. The patient was then given methergine and the bleeding stopped. Patient and infant tolerated delivery well. Presentation: Vertex Amniotic Membrane Rupture Type: Spontaneous Amniotic Fluid Description: Clear Placental Delivery Description: Spontaneous Placenta Disposition: [facility] Cord Vessel Description: 3 Vessels Cord Entanglement: None A Gender: Male (1 minute): 7 (5 minute): 9 Delayed Cord Clamping: Yes Post Vaginal Delivery Medications Given After Delivery: IV Pitocin and IM Methergin Episiotomy Description: None Laceration: None Complication Complications: None Multi Select Codes Urinary/Genital Urinary/Genital CPT Codes: 93844 Vaginal Delivery Only
--- NOTE | 2021-06-26 20:23 | DS.PCM_ITS ---
Providers Date of Admission: 06/26/21 Primary Care Physician: Jose Luis Taylor Reason For Visit: LABOR Diagnosis Discharge Diagnosis (1) Lumbar disc herniation: Status: Acute Code(s): M51.26 - Other intervertebral disc displacement, lumbar region (2) Pelvic pain affecting : Status: Acute Code(s): O26.899 - Other specified related conditions, unspecified trimester; R10.2 - Pelvic and perineal pain (3) Gastroesophageal reflux during , antepartum: Status: Acute Code(s): O99.619 - Diseases of the digestive system complicating , unspecified trimester; K21.9 - Gastro-esophageal reflux disease without esophagitis (4) Supervision of high risk , antepartum: Status: Acute Code(s): O09.90 - Supervision of high risk , unspecified, unspecified trimester (5) High risk due to smoking: Status: Acute Code(s): O99.330 - Smoking (tobacco) complicating , unspecified trimester Medications at Discharge Home Medications multivitamin no.47-iron fum 27 mg-folate no.1 1 mg-dha 300 mg capsule 1 cap PO DAILY 11/19/20 miscellaneous medical supply 1 ea MISCELLANEOUS .as needed #1 ea 05/15/21 methocarbamol 750 mg PO Q8H PRN 10 Days #30 tab 06/18/21 docusate sodium [Colace] 100 mg PO BID PRN 14 Days #24 cap 06/26/21 naproxen 500 mg PO BID PRN PRN 10 Days #30 tab 06/26/21 omeprazole 40 mg PO DAILY 06/26/21 sertraline 150 mg PO DAILY 06/26/21 Hospital Course Operations None Procedures - (vaginal delivery ) Summary of Care Provided Minutes Spent on Discharge: 30 Hospital Course: The patient was admitted for active labor on 06/26/2021. She re covered well on ppd#1 and desired dc to home ppd #2 Physical Exam Const alert, oriented x3, no apparent distress and healthy appearing General Appearance: cooperative; Negative for anxious HEENT normocephalic Face and Sinus: normal facial exam Eyes EOMs intact bilaterally and no scleral icterus General Eye: normal appearance of both eyes Neck full ROM and supple Lymph Lymphatic: no lymphadenopathy noted Chest Chest: abnormal inspection of the chest Resp normal respiratory effort Effort and Inspection: able to speak in complete sentences Cardio regular rate GI soft to palpation and non-tender Inspection: gravid Palpation: soft; Negative for tender Bimanual Exam - Vag & Uterus: uterus non-tender and other uterus is below umbilicus Back/Spine no CVA tenderness Extremity normal to inspection, full ROM and no clubbing, cyanosis or edema General Extremity: Negative for calf tenderness or edema Skin Lesions: no lesions Rashes: no rashes Psych mental status grossly normal Weight / BMI Weight Weight: 259 lb Body Mass Index (BMI) 40.5 ABG / Lab / Microbiology Data Result Diagrams: 06/27/21 09:45 Laboratory: Laboratory Results - last 24 hr 06/26/21 18:40: WBC 18.5 H, RBC 4.46, Hgb 12.5, Hct 37.2, MCV 83.4, MCH 28.0, MCHC 33.6, RDW Std Deviation 41.6, RDW Coeff of Kayley 13.7, Plt Count 226, MPV 11.0, Immature Gran % (Auto) 0.700, Neut % (Auto) 87.1 H, Lymph % (Auto) 7.3 L, [place] % (Auto) 4.6, Eos % (Auto) 0.1, Baso % (Auto) 0.2, Absolute Neuts (auto) 16.1 H, Absolute Lymphs (auto) 1.34, Nucleated RBC % 0 06/26/21 18:40: Blood Type O POSITIVE, Antibody Screen NEGATIVE Microbiology: Microbiology 06/26/21 18:50 Nasal Secretion SARS-CoV-2 Antigen (Rapid) - Final D/C Instructions Discharge Diet: No restrictions May resume sexual activity in: 4-6 weeks Call your doctor if your incision/area has: Continuous Slow Oozing, Sudden Increased Bleeding, Increased Pain/ Swelling, Increased Redness and Foul Smelling Discharge Please Follow Up With: Bianca Mederos, When: Call [phone] to make an appointment with your doctor in 6 weeks. If you had elevated blood pressure or 4th degree laceration, you will need to be seen in 2 weeks. Meaningful Use Info Meaningful Use Diagnoses (Choose all that apply): None applicable Discharge Plan Admission Admit Date/Time: 06/26/21 18:20 Primary Reason for Your Visit: vaginal delivery Attending Provider: Bianca Mederos Primary Care Provider: Jose Luis Taylor Instructions Patient Instructions: After a Vaginal Discharge Orders/Prescriptions Prescriptions: New naproxen 500 mg tablet 500 mg PO BID PRN PRN (Reason: Pain) 10 Days Qty: 30 RF: 0 docusate sodium [Colace] 100 mg capsule 100 mg PO BID PRN (Reason: constipation) 14 Days Qty: 24 RF: 0 Continued PNV-DHA 27 mg iron-1 mg -300 mg capsule 1 cap PO DAILY RF: 0 miscellaneous medical supply Misc 1 ea miscellaneous .as needed Qty: 1 RF: 0 methocarbamol 750 mg tablet 750 mg PO Q8H PRN (Reason: pain) 10 Days Qty: 30 RF: 0 sertraline 100 mg tablet 150 mg PO DAILY RF: 0 omeprazole 40 mg capsule,delayed release(DR/EC) 40 mg PO DAILY RF: 0 Referrals / Follow Up: Jose Luis Taylor [Primary Care Provider] - Disposition Disposition (needs filled in before D/C Order can be placed): Home, Self Care
--- NOTE | 2021-06-26 20:23 | PCM.DC ---
Discharge Instructions Diet Discharge Diet: No restrictions Activity Discharge Activity: Return to Normal Activity, May Not Drive (while taking narcotic pain medications.) and May Shower May resume sexual activity in: 4-6 weeks Dressing / Incision Call your doctor if your incision/area has: Continuous Slow Oozing, Sudden Increased Bleeding, Increased Pain/ Swelling, Increased Redness and Foul Smelling Discharge Follow Up Care Please Follow Up With: Bianca Mederos DO When: Call [phone] to make an appointment with your doctor in 6 weeks. If you had elevated blood pressure or 4th degree laceration, you will need to be seen in 2 weeks. Test Results: Test results from this visit will be discussed in further detail at your follow-up appointment, if applicable. Discharge Plan Admission Admit Date/Time: 06/26/21 18:20 Attending Provider: Bianca Mederos Primary Care Provider: Jose Luis Taylor Discharge Orders/Prescriptions Prescriptions: No Action PNV-DHA 27 mg iron-1 mg -300 mg capsule 1 cap PO DAILY RF: 0 miscellaneous medical supply Misc 1 ea miscellaneous .as needed Qty: 1 RF: 0 methocarbamol 750 mg tablet 750 mg PO Q8H PRN (Reason: pain) 10 Days Qty: 30 RF: 0 sertraline 100 mg tablet 150 mg PO DAILY RF: 0 omeprazole 40 mg capsule,delayed release(DR/EC) 40 mg PO DAILY RF: 0
[2021-06-26] MEDS: Oxytocin 30 units/NS 500 ml 30 UNITS/500 ML IV.SOLN 334 UNITS IV (20:34)
[2021-06-27 03:10] VITALS: BP 131/84; PULSE 98; RESP 18; TEMP 37.1
[2021-06-27 07:56] VITALS: BP 121/71; PULSE 86; RESP 16; TEMP 36.7
[2021-06-27] MEDS: Naproxen 500 MG Tablet PO (09:48)
[2021-06-27] MEDS: Sertraline 100 MG Tablet PO (09:48)
[2021-06-27 09:50] LABS: Hematocrit 35.6 % (37-47); Mean Corp Hgb Conc 33.7 g/dL (32-36); Mean Corpuscular Hgb 28.3 pg (27.0-32.0); Mean Platelet Vol. 11.5 fl (6.2-12.0); Platelet Count 193 K/mm3 (150-450); RBC Distribution Width CV 13.9 % (11.6-14.6); RBC Distribution Width SD 42.1 fl (35.1-43.9); Red Blood Count 4.24 M/mm3 (4.2-5.4); White Blood Count 19.4 K/mm3 (4.4-11.0)
--- NOTE | 2021-06-27 10:12 | PCM.PN.OB ---
Subjective Subjective Patient doing well without complaints. Tolerating PO. . feeding well. Denies chest pain, shortness of breath, calf pain/swelling, fevers, chills, lightheadedness. Objective Data Objective Data Vital Signs: Vital Signs Temp Pulse Resp BP Pulse Ox 98.1 F 86 16 121/71 H 96 06/27/21 07:56 06/27/21 07:56 06/27/21 07:56 06/27/21 07:56 06/26/21 21:01 Oxygen Delivery Method Room Air Weight: 259 lb Body Mass Index (BMI) 40.5 Intake & Output: Intake and Output for Last 24 Hours 06/25/21 06/26/21 06/27/21 23:59 23:59 23:59 Intake Total 1572.67 / 1572.67 Output Total 300 / 300 Balance 1272.67 / 1272.67 Lab / Micro Data Result Diagrams: 06/27/21 09:45 Labs: Laboratory Results - last 24 hr 06/26/21 18:40: WBC 18.5 H, RBC 4.46, Hgb 12.5, Hct 37.2, MCV 83.4, MCH 28.0, MCHC 33.6, RDW Std Deviation 41.6, RDW Coeff of Kayley 13.7, Plt Count 226, MPV 11.0, Immature Gran % (Auto) 0.700, Neut % (Auto) 87.1 H, Lymph % (Auto) 7.3 L, [place] % (Auto) 4.6, Eos % (Auto) 0.1, Baso % (Auto) 0.2, Absolute Neuts (auto) 16.1 H, Absolute Lymphs (auto) 1.34, Nucleated RBC % 0 06/26/21 18:40: Blood Type O POSITIVE, Antibody Screen NEGATIVE 06/27/21 09:45: WBC 19.4 H, RBC 4.24, Hgb 12.0, Hct 35.6 L, MCV 84.0, MCH 28.3, MCHC 33.7, RDW Std Deviation 42.1, RDW Coeff of Kayley 13.9, Plt Count 193, MPV 11.5 Micro: Microbiology 06/26/21 18:50 Nasal Secretion SARS-CoV-2 Antigen (Rapid) - Final ROS Constitutional Constitutional: Reports systems reviewed and no addt'l complaints, except as documented Cardiovascular Cardiovascular: Reports systems reviewed and no addt'l complaints, except as documented Respiratory/Chest Respiratory/Chest: Reports systems reviewed and no addt'l complaints, except as documented Gastrointestinal Gastrointestinal: Reports systems reviewed and no addt'l complaints, except as documented Physical Exam Const alert, oriented x3 and no apparent distress HEENT Head and Scalp: atraumatic Resp normal respiratory effort GI soft to palpation and non-tender Bimanual Exam - Vag & Uterus: uterus non-tender Uterus Palpation: uterus fundus firm (below Umbilicus) Assessment & Plan (1) Vaginal delivery: COMMENT: LEE WHITMAN IAL 40 boy [place]illo PLAN: s/p PPD # 1 1. routine post delivery care 2. breast feeding- support given 3. rh positive 4. rubella immune
[2021-06-27 11:12] VITALS: BP 126/75; PULSE 92; RESP 18; TEMP 36.4
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
[2021-06-27 15:40] VITALS: BP 111/74; PULSE 84; RESP 18; TEMP 36
[2021-06-27 17:26] VITALS: TEMP 36.6
[2021-06-27 20:10] VITALS: BP 112/64; PULSE 85; RESP 18; TEMP 36.5
== END 2021-06-27 21:35 | disposition home or self-care (01) | DRG 560 ==
PROVIDERS: Admitting Provider Obstetrics & Gynecology; PCP Family Medicine; Visit Provider Obstetrics & Gynecology
DX: O99.62 Diseases of the digestive system complicating childbirth (principal); K21.9 Gastro-esophageal reflux disease without esophagitis; O66.0 Obstructed labor due to shoulder dystocia; O99.344 Other mental disorders complicating childbirth; F41.9 Anxiety disorder, unspecified; M51.26 Other intervertebral disc displacement, lumbar region; O99.334 Smoking (tobacco) complicating childbirth; F17.200 Nicotine dependence, unspecified, uncomplicated; Z79.899 Other long term (current) drug therapy; Z3A.38 38 weeks gestation of pregnancy; Z37.0 Single live birth
CPT/HCPCS: 59025; 59050; 84112; 85025; 85027; 86850; 86900; 86901; 87426; 99218; J7120; G0378

== ENCOUNTER → 2022-04-21 | Outpatient (CLI) | payer MEDICAID, SELFPAY ==
[2022-04-21 10:21] LABS: hCG Titer Quant., Serum 178 mIU/mL (1-3)
== END | disposition home or self-care (01) ==
LOC: LAB 08:43
PROVIDERS: PCP Family Medicine; Visit Provider Obstetrics & Gynecology
DX: N91.2 Amenorrhea, unspecified (principal)
CPT/HCPCS: 36415; 84702

== ENCOUNTER → 2022-04-23 | Outpatient (CLI) | payer MEDICAID, SELFPAY ==
[2022-04-23 10:41] LABS: hCG Titer Quant., Serum 145 mIU/mL (1-3)
== END | disposition home or self-care (01) ==
PROVIDERS: PCP Family Medicine; Referring Provider Obstetrics & Gynecology; Visit Provider Obstetrics & Gynecology
DX: N91.2 Amenorrhea, unspecified (principal)
CPT/HCPCS: 36415; 84702

== ENCOUNTER → 2022-11-24 | Outpatient (CLI) | payer MEDICAID, SELFPAY ==
[2022-11-24 13:41] LABS: hCG Titer Quant., Serum 1815 mIU/mL (1-3)
== END | disposition home or self-care (01) ==
LOC: LAB 11:29
PROVIDERS: Referring Provider Nurse Practitioner Women's Health; Visit Provider Nurse Practitioner Women's Health
DX: N91.2 Amenorrhea, unspecified (principal)
CPT/HCPCS: 36415; 84702

== ENCOUNTER → 2022-11-26 | Outpatient (CLI) | payer MEDICAID, SELFPAY ==
[2022-11-26 11:45] LABS: Absolute Lymphocyte Count 2.28 X10^3/uL (0.83-4.51); Absolute Neutrophil Count 5.1 X10^3/uL (2.0-7.7); Basophil# 0.04 X10^3/uL; Basophil% 0.5 % (0-1); Eosinophil# 0.03 X10^3/uL; Eosinophils% 0.4 % (0-5); Hemoglobin 14.3 g/dL (12.0-15.0); Lymphocyte # 2.28 X10^3/ul (0.83-4.51); Lymphocyte % 29.2 % (19-41); Mean Corpuscular Volume 88.1 fL (81-99); Mean Platelet Vol. 10.4 fl (6.2-12.0); Monocyte# 0.33 X10^3/uL; Monocyte% 4.2 % (0-10); NRBC Flagged by Analyzer 0 % (0-5); Neutrophil % 65.4 % (47-70); Platelet Count 250 K/mm3 (150-450); RBC Distribution Width CV 12.8 % (11.6-14.6); RBC Distribution Width SD 41.6 fl (35.1-43.9); Red Blood Count 4.77 M/mm3 (4.2-5.4); White Blood Count 7.8 K/mm3 (4.4-11.0)
[2022-11-26 12:15] LABS: ALB/GLOB Ratio 1.1 RATIO (0.9-2.4); AST(SGOT) 11 U/L (15-37); Alanine Aminotransfer ALT/SGPT 23 U/L (13-56); Albumin, Serum 3.6 g/dL (3.2-5.0); Alkaline Phosphatase 91 U/L (45-117); Anion Gap 4 (5-15); BUN 15 mg/dL (7-18); BUN/Creat Ratio 19.3 RATIO (10-20); Calcium,Total 8.7 mg/dL (8.5-10.1); Chloride 105 mmol/L (98-107); Creatinine, Serum 0.78 mg/dL (0.55-1.02); EST Glomerular Filtration Rate 90 mL/min (>60); Est Glom Filt Rate - Afr Amer 108 mL/min (>60); Globulin 3.2 g/dL (2.2-4.2); Glucose 126 mg/dL (74-106); Potassium 3.7 mmol/L (3.5-5.1); Protein, Total 6.8 g/dL (6.4-8.2); Sodium Level 137 mmol/L (136-145)
[2022-11-26 12:37] LABS: hCG Titer Quant., Serum 3395 mIU/mL (1-3)
== END | disposition home or self-care (01) ==
LOC: LAB 11:18
PROVIDERS: Advanced Practice Midwife; Referring Provider Obstetrics & Gynecology; Visit Provider Obstetrics & Gynecology
DX: R63.8 Other symptoms and signs concerning food and fluid intake (principal); N91.2 Amenorrhea, unspecified
CPT/HCPCS: 36415; 80053; 84702; 85025

== ENCOUNTER → 2022-12-03 | Outpatient (CLI) | payer MEDICAID, SELFPAY ==
[2022-12-07 05:07] LABS: Chlamydia By Nucleic Acid AMP Negative (Negative); Gonococcus By Nucleic Acid AMP Negative (Negative)
[2022-12-13 20:07] LABS: HPV APTIMA, High Risk Positive (Negative); HPV Genotype 16, Aptima Negative (Negative); HPV Genotype 18,45 Aptima Negative (Negative)
== END | disposition home or self-care (01) ==
LOC: LABSPEC 14:10
PROVIDERS: Referring Provider Obstetrics & Gynecology; Visit Provider Obstetrics & Gynecology
DX: O09.90 Supervision of high risk pregnancy, unspecified, unspecified trimester (principal)
CPT/HCPCS: 87086; 87491; 87591; 87624; 88175; G0145

== ENCOUNTER → 2022-12-27 | Outpatient (CLI) | payer MEDICAID, SELFPAY ==
[2022-12-27 09:15] LABS: Absolute Lymphocyte Count 1.66 X10^3/uL (0.83-4.51); Basophil# 0.04 X10^3/uL; Basophil% 0.4 % (0-1); Eosinophil# 0.02 X10^3/uL; Eosinophils% 0.2 % (0-5); Hematocrit 42.8 % (37-47); Hemoglobin 14.3 g/dL (12.0-15.0); Lymphocyte # 1.66 X10^3/ul (0.83-4.51); Lymphocyte % 18.1 % (19-41); Mean Corp Hgb Conc 33.4 g/dL (32-36); Mean Corpuscular Hgb 29.5 pg (27.0-32.0); Mean Corpuscular Volume 88.4 fL (81-99); Mean Platelet Vol. 10.6 fl (6.2-12.0); Monocyte# 0.42 X10^3/uL; Monocyte% 4.6 % (0-10); NRBC Flagged by Analyzer 0 % (0-5); Neutrophil # 6.95 X10^3/uL (2.7-7.7); Neutrophil % 75.9 % (47-70); Platelet Count 251 K/mm3 (150-450); RBC Distribution Width CV 13.2 % (11.6-14.6); RBC Distribution Width SD 42.7 fl (35.1-43.9); Red Blood Count 4.84 M/mm3 (4.2-5.4); White Blood Count 9.2 K/mm3 (4.4-11.0)
[2022-12-27 09:32] LABS: Glucose Challenge Gest 1H 50g 107 mg/dL (70-140)
[2022-12-27 10:04] LABS: NATERA MAILED SPECIMEN
[2022-12-27 10:24] LABS: HIV - WCH Non-Reactive (Nonreactive); Hepatitis B Surface Antigen Non-Reactive (Nonreactive); Hepatitis C Antibody Non-Reactive (Nonreactive); Rubella IgG Reactive (Nonreactive); Syphilis Antibodies Non-reactive
== END | disposition home or self-care (01) ==
LOC: PAVLAB 08:53
PROVIDERS: Referring Provider Obstetrics & Gynecology; Visit Provider Obstetrics & Gynecology
DX: O09.90 Supervision of high risk pregnancy, unspecified, unspecified trimester (principal); Z3A.00 Weeks of gestation of pregnancy not specified
CPT/HCPCS: 36415; 82950; 85025; 86703; 86762; 86780; 86803; 86850; 86900; 86901; 87340

== ENCOUNTER 2023-04-15 09:45 | Outpatient (CLI) | payer MEDICAID, SELFPAY ==
[2023-04-15 10:01] LABS: Absolute Lymphocyte Count 1.72 X10^3/uL (0.83-4.51); Absolute Neutrophil Count 8.7 X10^3/uL (2.0-7.7); Basophil# 0.05 X10^3/uL; Basophil% 0.4 % (0-1); Eosinophil# 0.05 X10^3/uL; Eosinophils% 0.4 % (0-5); Hematocrit 38.3 % (37-47); Lymphocyte # 1.72 X10^3/ul (0.83-4.51); Lymphocyte % 15.5 % (19-41); Mean Corp Hgb Conc 33.9 g/dL (32-36); Mean Corpuscular Hgb 30.7 pg (27.0-32.0); Mean Corpuscular Volume 90.3 fL (81-99); Mean Platelet Vol. 10.2 fl (6.2-12.0); Monocyte# 0.44 X10^3/uL; NRBC Flagged by Analyzer 0 % (0-5); Neutrophil # 8.72 X10^3/uL (2.7-7.7); Neutrophil % 78.4 % (47-70); Platelet Count 249 K/mm3 (150-450); RBC Distribution Width CV 13.2 % (11.6-14.6); RBC Distribution Width SD 43.7 fl (35.1-43.9); Red Blood Count 4.24 M/mm3 (4.2-5.4); White Blood Count 11.1 K/mm3 (4.4-11.0)
[2023-04-15 10:43] LABS: Glucose Challenge Gest 1H 50g 145 mg/dL (70-140)
[2023-04-15 11:25] LABS: HIV - WCH Non-Reactive (Nonreactive); Syphilis Antibodies Non-reactive
== END 2023-04-15 23:59 | disposition home or self-care (01) ==
LOC: PAVLAB 09:46
PROVIDERS: Referring Provider Nurse Practitioner Women's Health; Visit Provider Nurse Practitioner Women's Health
DX: Z34.92 Encounter for supervision of normal pregnancy, unspecified, second trimester (principal); Z3A.21 21 weeks gestation of pregnancy
CPT/HCPCS: 36415; 82950; 85025; 86703; 86780

== ENCOUNTER → 2023-04-22 | Outpatient (CLI) | payer MEDICAID, SELFPAY ==
[2023-04-22 08:29] LABS: Glucose GTT-Gestation. Fasting 99 mg/dL (<105)
[2023-04-22 08:46] LABS: Glucose GTT-Gestational 1 Hr 132 mg/dL (<190)
[2023-04-22 10:01] LABS: Glucose GTT-Gestational 2 Hr 117 mg/dL (<165)
[2023-04-22 10:55] LABS: Glucose GTT-Gestational 3 Hr 75 L (<145)
== END | disposition home or self-care (01) ==
LOC: LAB 07:09
PROVIDERS: Referring Provider Registered Nurse; Visit Provider Registered Nurse
DX: Z13.1 Encounter for screening for diabetes mellitus (principal)
CPT/HCPCS: 36415; 82951; 82952

== ENCOUNTER 2023-06-13 18:10 | Outpatient (CLI) | payer MEDICAID, SELFPAY ==
[2023-06-13 18:37] VITALS: PULSE 100; O2SAT 95
[2023-06-13 18:39] VITALS: BP 120/77; PULSE 102; TEMP 37.1
[2023-06-13 18:42] VITALS: BMI 39.2
[2023-06-13 18:51] LABS: Hematocrit 36.4 % (37-47); Hemoglobin 12.5 g/dL (12.0-15.0); Mean Corp Hgb Conc 34.3 g/dL (32-36); Mean Corpuscular Hgb 30.1 pg (27.0-32.0); Mean Corpuscular Volume 87.7 fL (81-99); Platelet Count 266 K/mm3 (150-450); RBC Distribution Width CV 13.6 % (11.6-14.6); RBC Distribution Width SD 43.9 fl (35.1-43.9); Red Blood Count 4.15 M/mm3 (4.2-5.4); White Blood Count 13.2 K/mm3 (4.4-11.0)
[2023-06-13 18:55] VITALS: BP 120/75; PULSE 101
[2023-06-13 19:10] VITALS: BP 126/75; PULSE 98
[2023-06-13 19:40] VITALS: BP 127/70; PULSE 92
[2023-06-13 19:44] LABS: AST(SGOT) 13 U/L (15-37); Alanine Aminotransfer ALT/SGPT 11 U/L (13-56); Creatinine, Serum 0.63 mg/dL (0.55-1.02); EST Glomerular Filtration Rate 114 mL/min (>60); Est Glom Filt Rate - Afr Amer 137 mL/min (>60); Estimated Creatinine Clearance 116.68 ml/min; Uric Acid 3.5 mg/dL (2.6-6.0)
[2023-06-13 20:00] LABS: Protein, Urine (Random) 37.4 mg/dL (<11.9); Protein:Creat Ratio 126 mg/g CRE (0-200)
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
== END 2023-06-13 20:15 | disposition home or self-care (01) ==
LOC: WPOUT 18:13 → WP 18:14
PROVIDERS: Visit Provider Registered Nurse
DX: O16.3 Unspecified maternal hypertension, third trimester (principal); Z3A.34 34 weeks gestation of pregnancy; F17.200 Nicotine dependence, unspecified, uncomplicated; O99.333 Smoking (tobacco) complicating pregnancy, third trimester
CPT/HCPCS: 36415; 59025; 59050; 82565; 82570; 84156; 84450; 84460; 84550; 85027; 99221; G0378

== ENCOUNTER → 2023-06-27 | Outpatient (CLI) | payer MEDICAID, SELFPAY | END | disposition home or self-care (01) | LOC: LABSPEC 16:16 | PROVIDERS: Referring Provider Registered Nurse; Visit Provider Registered Nurse | DX: Z34.90 Encounter for supervision of normal pregnancy, unspecified, unspecified trimester (principal); Z3A.00 Weeks of gestation of pregnancy not specified | CPT/HCPCS: 87081 ==

== ENCOUNTER → 2023-06-28 | Outpatient (CLI) | payer MEDICAID, SELFPAY ==
--- NOTE | 2023-06-28 13:00 | US_ITS ---
STUDY: SECOND AND THIRD TRIMESTER OBSTETRICAL ULTRASOUND - LIMITED REASON FOR EXAM: Female, 37 years old growth LMP: October 18, 2022. PRIOR ULTRASOUND: None. TECHNIQUE: Transabdominal TECHNICAL QUALITY: Adequate. FINDINGS: There is a single intrauterine fetus. The fetus is in a cephalic presentation. There is demonstrated cardiac activity with a heart rate of 147 bpm. There is a normal amniotic fluid volume. The largest amniotic fluid pocket measures 6.4 cm. The amniotic fluid index (EDWIGE) is 17 cm. The placenta is anterior in location and is not low lying. There are Grade 3 placental changes. The cervix was unable to be measured due to the head position. BIOMETRY: BPD: 8.92 cm: 36 weeks, 1 days HC: 32.38 cm: 36 weeks, 4 days AC: 33.67 cm: 37 weeks, 4 days FL: 7.02 cm: 36 weeks, 0 days Age by LMP: 36 weeks, 1 days. DANISHA by LMP: July 25, 2023. age by current US: 36 weeks, 3 days. DANISHA by current US: July 23, 2023. Estimated weight: 3102 grams, +/- 465 grams, 75 percentile. US/OB Limited With Biometrics IMPRESSION: Single live intrauterine gestation with a mean gestational age of 36 weeks and 3 days. Electronically Signed: Jaun Rivero MD at 15:38 EST ,
== END | disposition home or self-care (01) ==
LOC: OPUS 12:59
PROVIDERS: Referring Provider Registered Nurse; Visit Provider Registered Nurse
DX: O09.90 Supervision of high risk pregnancy, unspecified, unspecified trimester (principal); Z3A.00 Weeks of gestation of pregnancy not specified
CPT/HCPCS: 76816

== ENCOUNTER 2023-07-15 11:55 | Outpatient (CLI) | payer MEDICAID, SELFPAY ==
[2023-07-15] VITALS (9 sets, daily range): BP systolic 121–173; BP diastolic 57–86; PULSE 83–111; TEMP 37.1; O2SAT 95; BMI 40.6
[2023-07-15 12:44] LABS: ROM Internal Control Test YES-OK TO RESULT pt. (Internal QC)
[2023-07-15 12:45] LABS: ROM Patient Test Negative (Negative); Record Kit Lot#, ROM+ K1409
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
== END 2023-07-15 13:19 | disposition home or self-care (01) ==
LOC: WPOUT 11:58 → WP 11:58
PROVIDERS: Referring Provider Registered Nurse; Visit Provider Registered Nurse
DX: O47.1 False labor at or after 37 completed weeks of gestation (principal); R10.9 Unspecified abdominal pain; M54.9 Dorsalgia, unspecified; Z3A.38 38 weeks gestation of pregnancy; O99.893 Other specified diseases and conditions complicating puerperium
CPT/HCPCS: 59025; 59050 ×2; 84112

== ENCOUNTER 2023-07-17 15:20 | Outpatient (CLI) | payer MEDICAID, SELFPAY ==
[2023-07-17 15:49] VITALS: BP 126/79; PULSE 95; TEMP 36.9; O2SAT 97; BMI 40.3
[2023-07-17 18:07] LABS: Mucous, Urine 0 SEEN /hpf (<or=2+)
[2023-07-17 18:13] LABS: Color, Urine Yellow (Yellow); Glucose, Dipstick Normal (Normal); Ketone-Dipstick 5 mg/dl (Negative); Leukocyte Esterase-Dipstick 100 /ul (Negative); Nitrite-Dipstick Negative (Negative); Occult Blood-Urine 10 /ul (Negative); Protein-Dipstick 100 mg/dl (Negative); Urine Bilirubin Dipstick Negative (Negative); Urine Clarity Sl. Cloudy (Clear); Urine Urobilinogen 4 mg/dl (Normal)
[2023-07-17 18:22] LABS: Bacteria 1+ /hpf (None Seen); Red Blood Cells-Urine 0-5 SEEN /hpf (0-5); Squamous Epithelial Cells - UA 0-5 SEEN /hpf (5-10); White Blood Cells 10-25 SEEN /hpf (0-5)
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
== END 2023-07-17 17:50 | disposition home or self-care (01) ==
LOC: WPOUT 15:47 → WP 15:48
PROVIDERS: Visit Provider Registered Nurse
DX: Z00.00 Encounter for general adult medical examination without abnormal findings (principal)
CPT/HCPCS: 59025; 59050 ×2; 81001; 87086

== ENCOUNTER 2023-07-18 06:57 | Inpatient (IN) | payer MEDICAID, SELFPAY ==
[2023-07-18] VITALS (51 sets, daily range): BP systolic 104–136; BP diastolic 67–83; PULSE 60–102; TEMP 36.2–36.7; O2SAT 98–100; BMI 40.3
[2023-07-18] MEDS: Lactated Ringers 1,000 ML 200 ML IV ×2 (08:10→15:15)
[2023-07-18] MEDS: Oxytocin 15 Units/NS 250ml 15 UNITS/250 ML IV.SOLN 2 UNITS IV (08:13)
[2023-07-18 08:14] LABS: Absolute Lymphocyte Count 1.45 X10^3/uL (0.83-4.51); Absolute Neutrophil Count 7.7 X10^3/uL (2.0-7.7); Basophil# 0.03 X10^3/uL; Basophil% 0.3 % (0-1); Eosinophil# 0.02 X10^3/uL; Eosinophils% 0.2 % (0-5); Hematocrit 35.4 % (37-47); Lymphocyte # 1.45 X10^3/ul (0.83-4.51); Lymphocyte % 14.8 % (19-41); Mean Corp Hgb Conc 33.9 g/dL (32-36); Mean Corpuscular Hgb 29.5 pg (27.0-32.0); Mean Platelet Vol. 11.5 fl (6.2-12.0); Monocyte# 0.56 X10^3/uL; Monocyte% 5.7 % (0-10); NRBC Flagged by Analyzer 0 % (0-5); Neutrophil % 78.4 % (47-70); Platelet Count 183 K/mm3 (150-450); RBC Distribution Width CV 14.5 % (11.6-14.6); RBC Distribution Width SD 45.6 fl (35.1-43.9); Red Blood Count 4.07 M/mm3 (4.2-5.4); White Blood Count 9.8 K/mm3 (4.4-11.0)
[2023-07-18 09:08] LABS: Syphilis Antibodies Non-reactive
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
[2023-07-18] MEDS: CHLORHEXIDINE GLUC 2% CLOTH 1 EACH TOWELETTE TOPICAL ×2 (09:38→22:43)
[2023-07-18 09:48] LABS: ROM Internal Control Test YES-OK TO RESULT pt. (Internal QC); ROM Patient Test Negative (Negative); Record Kit Lot#, ROM+ K1374
[2023-07-18] MEDS: LACTATED RINGERS 500 ML 999 ML IV (15:25)
[2023-07-18] MEDS: fentaNYL-bupivacaine (epidural) 100 ML BAG EPIDURAL (21:00)
--- NOTE | 2023-07-18 23:16 | PLAC_PTH ---
PATIENT: XIMENA BECK LOC: [facility] U#:[id number] AGE/SX: 37/F ROOM: [facility] RE07/18/[address]: Su Zaman CNM : 1985 BED: 1 DIS: 07/20/2023 SPEC #: [id number] RECD: 07/19/23 00:25 STATUS: RODRIGO REBlair #: [id number] ERIC: 07/18/23 23:[address]: Su Zaman DEPT: SURGICAL PATHOLOGY RECD BY: Lindsay Hess ENTERED: 07/19/23 08:37 SP TYPE: PLACENTA OTHR DR: No Primary Care Phys Tissues: Placenta, NOS Procedures: Surgery Specimen Level V HEADER OPERATION: Vaginal delivery PRE-OP DIAGNOSIS: Calcified placenta TISSUE SUBMITTED: Placenta MICROSCOPIC DIAGNOSIS Brewer placenta (713 gm): Umbilical cord - trivascular with no evidence of inflammation. Placental membranes - No pathologic change. Placental disc - foci of intraparenchymal hemorrhage, remote infarcts, increased intraparenchymal microcalcification, Macy-Jimbo change and intervillous congestion. AM:jose 07/21/2023 MICROSCOPIC DESCRIPTION Slides are reviewed. GROSS DESCRIPTION SPECIMEN: PLACENTA / CLINICAL INFORMATION: A. Weight: 3.375 kg B. Gestational Age: 39 weeks C. Sex: Male PLACENTAL WEIGHT (POST FIXATION): 713 gm PLACENTAL DIMENSIONS: 18.0 x 19.0 x 3.5 cm PLACENTAL SHAPE: Usual ovoid PLACENTAL WEIGHT FOR GESTATIONAL AGE: Greater than 99th percentile MEMBRANES - Present A. Insertion: Marginal B. Site of rupture from edge: 5.0 cm from edge of placental disc C. Color of membrane: Frank-romano D. Abnormalities: None UMBILICAL CORD - Present A. Color: Frank-romano B. Insertion: Paracentral C. Length: 35.0 cm D. Diameter: 1.3 cm E. Number of vessels: Three F. Abnormalities: Sections reveal focally hemorrhagic cut surfaces PLACENTAL DISC - Present A. Color of surface: Frank-romano B. surface abnormalities: None C. Maternal cotyledons: Intact with minimal tears D. Attached retro placental clot: No clot E. Cut surface: Dark red and spongy F. Lesions: Sections reveal three peripheral frank, indurated areas measuring 2.0, 1.5 and 4.5 cm in greatest dimension. Four frank, indurated, hemorrhagic areas are also noted, the largest measuring 3.0 cm in greatest dimension. G. Separate clot: Absent SECTIONS SUBMITTED: 1. Membrane roll 2. Cord, maternal end, indurated area at the peripheral portion of the placenta 3. Cord, end, indurated area at the peripheral portion of the placenta 4. Placental disc, and maternal surfaces, peripheral indurated area 5. Placental disc, and maternal surfaces, central, indurated, hemorrhagic area 6. Placental disc, and maternal surfaces, central, indurated, hemorrhagic area 7. Placental disc, and maternal surfaces, central, indurated, hemorrhagic area 8. Placental disc, and maternal surfaces, central, indurated, hemorrhagic area 9. Uninvolved placental disc SJ:jose 07/20/2023 TC:5 CPT: 76876
[2023-07-18] MEDS: Oxytocin 15 Units/NS 250ml 15 UNITS/250 ML IV.SOLN 83 UNITS IV (23:23)
--- NOTE | 2023-07-18 23:31 | EX.PCM.OBRPT ---
Assessment & Plan (1) (spontaneous vaginal delivery): COMMENT: LC IOL boy:Jese Maternal Data Information DANISHA Calculator Estimated Delivery Date Method Current WG Current Estimate 07/25/23 LMP (Certain) 39w 0d Final DANISHA: 07/25/23 Final DANISHA Source: LMP Gestational age: 39 Vaginal Delivery Maternal Presentation Maternal Presentation: Medically Indicated Induction Maternal Presentation: at 39 weeks with IOL for AMA, obesity and hx of shoulder dystocia. Type of Induction: Pitocin Medical Reason for Induction: Maternal Medical Condition: list: (AMA, obesity, hx of shoulder dystocia) Operative Information Date of Procedure: 07/18/23 Pre-Operative Diagnosis: see problem list Post-Operative Diagnosis: Surgery / Procedure Performed: Spontaneous Vaginal Delivery Type of Anesthesia: Epidural Drain: Cullen to straight drain Estimated Blood Loss: 200 Time of Delivery: 23:16 Findings Description of Procedure: Patient began pushing and delivered the head in the GIUSEPPE presentation. The head was delivered atraumatically. The anterior and posterior shoulders delivered without complication followed by the rest of the infant and the was placed on the maternal abdomen. Delayed cord clamping was employed for approximately 60 seconds. Cord was clamped and cut and gentle traction was applied to the cord and the placenta delivered spontaneously immediately following it was noted to be intact with three-vessel cord. The perineum and vagina were inspected and noted to have no laceration. EBL was 200cc. Patient and infant tolerated delivery well, entered recovery phase bonding skin to skin. boy:Jese Presentation: Vertex Amniotic Membrane Rupture Type: Spontaneous Time of Membrane Rupture: 1245 Amniotic Fluid Description: Clear Placental Delivery Description: Spontaneous Placenta Disposition: [facility] Cord Vessel Description: 3 Vessels Cord Entanglement: None Infant A Gender: Male (1 minute): 9 (5 minute): 9 Delayed Cord Clamping: Yes Post Vaginal Delivery Medications Given After Delivery: IV Pitocin and IM Pitocin Laceration: None Procedures Urinary/Genital [id number]: [id number] Vaginal Delivery global pkg
[2023-07-18] MEDS: Oxytocin 10 UNITS/ML Vial IM (23:41)
--- NOTE | 2023-07-18 23:52 | DCINST_ITS ---
Discharge Instructions Diet Discharge Diet: No restrictions Activity Discharge Activity: May Not Drive and May Shower May resume sexual activity in: 6 weeks Weight Bearing Status: Full weight bearing Dressing / Incision Call your doctor if your incision/area has: Sudden Increased Bleeding, Increased Pain/ Swelling and Foul Smelling Discharge Call your doctor if you observe: Fever of 101 or Higher, Numbness or Tingling, Change in Color, Inability to urinate, Inability to have a bowel movement, Using more than 1 pad per hour, Shortness of breath, Dizziness, Fainting spells, Chest pain, Calf discomfort and Uncontrolled pain Follow Up Care Please Follow Up With: Su Zaman CNM When: 6 weeks , please call office to make an appointment. Congratulations on the of your baby! Test Results: Test results from this visit will be discussed in further detail at your follow- up appointment, if applicable. Discharge Plan Admission Admit Date/Time: 07/18/23 06:57 Attending Provider: Su Zaman Primary Care Provider: Care Physician,Mouna Primary Discharge Orders/Prescriptions Prescriptions: No Action PNV-DHA 27 mg iron-1 mg -300 mg capsule 1 cap PO DAILY sertraline 100 mg tablet 100 mg PO DAILY Qty: 30 12RF Hold Instructions: paitent not taking after 1st trimester omeprazole 20 mg capsule,delayed release(DR/EC) 20 mg PO DAILY Qty: 90 0RF metoclopramide HCl [Reglan] 10 mg tablet 10 mg PO HS PRN (Reason: nausea and vomiting) 30 Days Qty: 30 0RF Referrals / Follow Up: Care Physician,No Primary [Primary Care Provider] - Disposition Disposition (needs filled in before D/C Order can be placed): Home, Self Care
[2023-07-19] VITALS (17 sets, daily range): BP systolic 101–154; BP diastolic 61–88; PULSE 61–93; RESP 16–18; TEMP 36.5–36.9; O2SAT 98–99
[2023-07-19 00:26] LABS: Pathology Specimen OB SEE PATHOLOGY REPORT
--- NOTE | 2023-07-19 08:28 | PCM.PN.OB ---
Subjective Subjective Patient doing well without complaints. Tolerating PO. Ambulating and voiding without difficulty. Feeding well. Denies chest pain, shortness of breath, calf pain/swelling, fevers, chills, lightheadedness. Objective Data Objective Data Vital Signs: Vital Signs Temp Pulse Resp BP Pulse Ox O2 Del Method 97.8 F 81 18 114/67 98 Room Air 07/19/23 01:21 07/19/23 04:16 07/19/23 04:16 07/19/23 04:16 07/18/23 17:27 07/19/23 04:16 Oxygen Delivery Method Room Air Weight: 250 lb Body Mass Index (BMI) 40.3 Intake & Output: Intake and Output for Last 24 Hours 07/17/23 07/18/23 07/19/23 23:59 23:59 23:59 Intake Total 2654.32 / 2654.32 250 / 250 Output Total 420 / 420 800 / 800 Balance 2234.32 / 2234.32 -550 / -550 Lab / Micro Data Attestation: I reviewed the patient's lab results. 07/18/23 08:05 Labs: Laboratory Results - last 24 hr 07/18/23 08:05: Syphilis Total Ab Non-reactive, Blood Type O POSITIVE, Antibody Screen NEGATIVE 07/18/23 09:10: Vag Amniotic Fld Detect Negative ROS Constitutional Constitutional: Reports systems reviewed and no addt'l complaints, except as documented; Denies anorexia or headache(s) Cardiovascular Cardiovascular: Reports systems reviewed and no addt'l complaints, except as documented; Denies dizziness, dyspnea, nausea or tachypnea Respiratory/Chest Respiratory/Chest: Reports systems reviewed and no addt'l complaints, except as documented; Denies cough, dyspnea, shortness of breath at rest or tachypnea Gastrointestinal Gastrointestinal: Reports systems reviewed and no addt'l complaints, except as documented; Denies abdominal pain, constipation or nausea Genitourinary Genitourinary: Reports systems reviewed and no addt'l complaints, except as documented; Denies burning urination, difficulty urinating, dysuria, urinary frequency or urinary incontinence Musculoskeletal Musculoskeletal: Reports systems reviewed and no addt'l complaints, except as documented Integumentary Integumentary: Reports systems reviewed and no addt'l complaints, except as documented Neurologic Neurologic: Reports systems reviewed and no addt'l complaints, except as documented; Denies abnormal speech, dizziness or headache(s) Psychiatric Psychiatric: Reports systems reviewed and no addt'l complaints, except as documented Endocrine Endocrinology: Reports systems reviewed and no addt'l complaints, except as documented Hematologic/Lymphatic Hematologic/Lymphatic: Reports systems reviewed and no addt'l complaints, except as documented Physical Exam Const alert, oriented x3 and no apparent distress Neck full ROM Resp normal respiratory effort, normal air movement and no retractions Effort and Inspection: able to speak in complete sentences and symmetric chest movement GI soft to palpation Bladder / Kidney Exam: bladder normal to palpation Uterus Palpation: uterus fundus firm Extremity normal to inspection and full ROM Psych mental status grossly normal, thought process normal and cooperative Assessment & Plan (1) Hypertension affecting : COMMENT: normal BP in [facility] with normal blood work. (2) Tobacco use: COMMENT: counseled (3) History of shoulder dystocia: COMMENT: 8lb 1 ounces mild, growth us at 36 weeks and deliver by 39 (4) Salt craving: COMMENT: CBC and CMP ordered (5) Lumbar disc herniation: COMMENT: with previous had ortho referral. still bothersome. neuro consult. to obtain spine MRI:no stenosis or impingement. Ref for PT. Enc movement, currently sitting in wheelchair. Sit if numbness occurs. Declined request for bedrest, and FMLA for to care for her. 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 reordered and counseling encouraged. (8) (spontaneous vaginal delivery): COMMENT: LC IOL boy:Jese PLAN: s/p PPD # 1 1. routine post delivery care 2. breast feeding- support given 3. rh positive 4. rubella immune Charges/Coding Multi Select Codes Urinary/Genital Urinary/Genital CPT Codes: No Charge
[2023-07-19] MEDS: Acetaminophen 500 MG Tablet 1000 MG PO ×2 (09:19→17:45)
[2023-07-19] MEDS: Sertraline 100 MG Tablet PO (09:19)
--- NOTE | 2023-07-19 16:52 | DCINST_ITS ---
Discharge Instructions Diet Discharge Diet: No restrictions Activity Discharge Activity: Return to Normal Activity May resume sexual activity in: 6 weeks Weight Bearing Status: Full weight bearing Dressing / Incision Call your doctor if your incision/area has: Sudden Increased Bleeding, Increased Pain/ Swelling and Foul Smelling Discharge Call your doctor if you observe: Fever of 101 or Higher, Numbness or Tingling, Change in Color, Inability to urinate, Inability to have a bowel movement, Using more than 1 pad per hour, Shortness of breath, Dizziness, Fainting spells, Chest pain, Calf discomfort and Uncontrolled pain Follow Up Care Please Follow Up With: Su Zaman CNM When: Please call the office to schedule your follow up appointment in 6 weeks. If you had high blood pressure please call to schedule an appointment in 2 weeks. Test Results: Test results from this visit will be discussed in further detail at your follow- up appointment, if applicable. Discharge Plan Admission Admit Date/Time: 07/18/23 06:57 Attending Provider: Su Zaman Primary Care Provider: Care Physician,Mouna Primary Discharge Orders/Prescriptions Prescriptions: No Action PNV-DHA 27 mg iron-1 mg -300 mg capsule 1 cap PO DAILY sertraline 100 mg tablet 100 mg PO DAILY Qty: 30 12RF Hold Instructions: paitent not taking after 1st trimester omeprazole 20 mg capsule,delayed release(DR/EC) 20 mg PO DAILY Qty: 90 0RF metoclopramide HCl [Reglan] 10 mg tablet 10 mg PO HS PRN (Reason: nausea and vomiting) 30 Days Qty: 30 0RF Referrals / Follow Up: Care Physician,Mouna Primary [Primary Care Provider] - Disposition Disposition (needs filled in before D/C Order can be placed): Home, Self Care
[2023-07-19] MEDS: Naproxen 500 MG Tablet PO (20:50)
--- NOTE | 2023-07-19 21:05 | NURSING ---
Patient reporting burning upon urinating. States she is voiding a large amount. Encouraged to use ti bottle upon initiating stream.
[2023-07-20 00:43] VITALS: BP 139/73; PULSE 83; RESP 16; TEMP 36.5
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
--- NOTE | 2023-07-21 15:02 | NURSING ---
07/21/23 1502: This IBCLC RN called pt's OBGYN office (with permission of patient) to report symptoms patient explained during follow up phone call. IBCLC RN shared that patient is experiencing severe back pain, cramping, and lochia with clots. Office staff states they will reach out to patient.
== END 2023-07-20 01:15 | disposition home or self-care (01) | DRG 560 ==
PROVIDERS: Admitting Provider Registered Nurse; Referring Provider Registered Nurse; Visit Provider Registered Nurse
DX: O99.892 Other specified diseases and conditions complicating childbirth (principal); Z37.0 Single live birth; M51.26 Other intervertebral disc displacement, lumbar region; O99.214 Obesity complicating childbirth; O16.5 Unspecified maternal hypertension, complicating the puerperium; Z3A.39 39 weeks gestation of pregnancy; Z79.899 Other long term (current) drug therapy
CPT/HCPCS: 59025; 59050; 81001; 84112; 85025; 86780; 86850; 86900; 86901; 87086; 87088; 88307; 99221; 99406; J7120; G0378

== ENCOUNTER → 2023-12-30 | Outpatient (CLI) | payer MEDICAID, SELFPAY ==
[2024-01-03 00:07] LABS: Chlamydia By Nucleic Acid AMP Negative (Negative); Gonococcus By Nucleic Acid AMP Negative (Negative)
== END | disposition home or self-care (01) ==
LOC: LABSPEC 16:59
PROVIDERS: Referring Provider Advanced Practice Midwife; Visit Provider Advanced Practice Midwife
DX: O99.210 Obesity complicating pregnancy, unspecified trimester (principal); E66.9 Obesity, unspecified; Z3A.00 Weeks of gestation of pregnancy not specified
CPT/HCPCS: 87086; 87088; 87491; 87591

== ENCOUNTER → 2024-01-17 | Outpatient (CLI) | payer MEDICAID, SELFPAY ==
[2024-01-17 12:49] LABS: Absolute Lymphocyte Count 1.79 X10^3/uL (0.83-4.51); Absolute Neutrophil Count 5.1 X10^3/uL (2.0-7.7); Basophil# 0.03 X10^3/uL; Basophil% 0.4 % (0-1); Eosinophil# 0.02 X10^3/uL; Eosinophils% 0.3 % (0-5); Hematocrit 40.5 % (37-47); Hemoglobin 13.4 g/dL (12.0-15.0); Lymphocyte # 1.79 X10^3/ul (0.83-4.51); Lymphocyte % 24.5 % (19-41); Mean Corp Hgb Conc 33.1 g/dL (32-36); Mean Corpuscular Volume 84.7 fL (81-99); Mean Platelet Vol. 10.7 fl (6.2-12.0); Monocyte# 0.35 X10^3/uL; Monocyte% 4.8 % (0-10); NRBC Flagged by Analyzer 0 % (0-5); Neutrophil % 69.6 % (47-70); Platelet Count 226 K/mm3 (150-450); RBC Distribution Width CV 13.2 % (11.6-14.6); Red Blood Count 4.78 M/mm3 (4.2-5.4); White Blood Count 7.3 K/mm3 (4.4-11.0)
[2024-01-17 13:42] LABS: HIV - WCH Non-Reactive (Nonreactive); Rubella IgG Reactive (Nonreactive); Syphilis Antibodies Non-reactive
[2024-01-17 13:53] LABS: Hepatitis B Surface Antigen Non-Reactive (Nonreactive); Hepatitis C Antibody Non-Reactive (Nonreactive)
[2024-01-17 14:32] LABS: Hemoglobin A1c 5.1 % (3.8-5.6)
== END | disposition home or self-care (01) ==
LOC: LAB 12:05
PROVIDERS: Obstetrics & Gynecology; Referring Provider Advanced Practice Midwife; Visit Provider Advanced Practice Midwife
DX: O09.521 Supervision of elderly multigravida, first trimester (principal); E66.9 Obesity, unspecified; Z3A.00 Weeks of gestation of pregnancy not specified
CPT/HCPCS: 36415; 83036; 85025; 86703; 86762; 86780; 86803; 86850; 86900; 86901; 87340

== ENCOUNTER 2024-01-19 21:25 | Emergency (ER) | payer MEDICAID, SELFPAY ==
[2024-01-19 21:26] VITALS: BP 115/75; PULSE 87; RESP 17; TEMP 36.4; O2SAT 99; BMI 35.3
--- NOTE | 2024-01-19 21:40 | US_ITS ---
EXAM: US , TRANSVAGINAL CLINICAL INDICATION: bleeding-heavy TECHNIQUE: Real-time transvaginal obstetrical ultrasound of the maternal pelvis and a first trimester with image documentation. Transvaginal imaging was used for better evaluation of the fetus and adnexa. COMPARISON: No relevant prior studies available. FINDINGS: GESTATION: There is an intrauterine gestation. Gestational sac has a mean sac diameter of 4.1 cm age 9 weeks 4 days. There is a 7 mm yolk sac. The pole crown-rump length of 4.5 cm age 11 day. heart rate is 170 70/m. PLACENTA/AMNIOTIC FLUID: There is a heterogeneous area adjacent to the gestational sac that measures 4.7 x 5.5 x 2.2 cm possibly representing a large subchorionic hemorrhage. UTERUS/CERVIX: Uterus measures 11.8 x 7.6 x 10.2 cm. No myometrial mass. OVARIES: The right ovary measures 2.9 x 2.1 x 2.0 cm. The left ovary is not visualized. FREE FLUID: No free fluid. US/Transvaginal w/Preg US IMPRESSION: 1. Intrauterine gestation with an average ultrasound age of 10 weeks 3 days and an ultrasound estimated due date of 08/13/2024. heart rate is 177. 2. Heterogeneous area adjacent to the gestational sac possibly representing large subchorionic hemorrhage. Electronically Signed: Parker Munson MD at 22:45 EDT ,
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
[2024-01-19 21:57] LABS: Absolute Neutrophil Count 5.9 X10^3/uL (2.0-7.7); Basophil# 0.02 X10^3/uL; Basophil% 0.2 % (0-1); Eosinophil# 0.03 X10^3/uL; Eosinophils% 0.3 % (0-5); Hemoglobin 13.6 g/dL (12.0-15.0); Lymphocyte % 25.5 % (19-41); Mean Corpuscular Hgb 29.1 pg (27.0-32.0); Mean Corpuscular Volume 85.7 fL (81-99); Mean Platelet Vol. 10.7 fl (6.2-12.0); Monocyte# 0.41 X10^3/uL; Monocyte% 4.8 % (0-10); NRBC Flagged by Analyzer 0 % (0-5); Neutrophil # 5.94 X10^3/uL (2.7-7.7); Neutrophil % 68.9 % (47-70); Platelet Count 244 K/mm3 (150-450); RBC Distribution Width CV 13.2 % (11.6-14.6); RBC Distribution Width SD 40.8 fl (35.1-43.9); Red Blood Count 4.67 M/mm3 (4.2-5.4); White Blood Count 8.6 K/mm3 (4.4-11.0)
[2024-01-19] MEDS: 0.9% Normal Saline (1000mL) 1,000 ML 999 ML IV (22:24)
[2024-01-19 23:26] VITALS: BP 120/56; PULSE 87; RESP 18; O2SAT 99
[2024-01-20 00:07] LABS: Hematocrit 38.3 % (37-47); Hemoglobin 12.7 g/dL (12.0-15.0)
[2024-01-20 00:31] VITALS: BP 124/72; PULSE 81; RESP 18; TEMP 36.4; O2SAT 97
== END 2024-01-20 00:38 | disposition home or self-care (01) ==
PROVIDERS: Emergency Provider Emergency Medicine; Visit Provider Emergency Medicine
DX: O20.0 Threatened abortion (principal); O99.331 Smoking (tobacco) complicating pregnancy, first trimester; F17.200 Nicotine dependence, unspecified, uncomplicated; O09.511 Supervision of elderly primigravida, first trimester; Z3A.10 10 weeks gestation of pregnancy; K21.9 Gastro-esophageal reflux disease without esophagitis; Z79.899 Other long term (current) drug therapy
CPT/HCPCS: 76817; 85014; 85018; 85025; 96360; 99282; J7030; A4216

== ENCOUNTER 2024-02-09 17:31 | Emergency (ER) | payer MEDICAID, SELFPAY ==
[2024-02-09 17:31] VITALS: BP 134/86; PULSE 99; RESP 18; TEMP 36.2; O2SAT 100; BMI 35.9
--- NOTE | 2024-02-09 17:52 | US_ITS ---
STUDY: SECOND AND THIRD TRIMESTER OBSTETRICAL ULTRASOUND - LIMITED REASON FOR EXAM: Female, 38 years old Subchorionic bleed vaginal bleeding LMP: PRIOR ULTRASOUND: None. TECHNIQUE: Transabdominal TECHNICAL QUALITY: Adequate. FINDINGS: There is a single intrauterine fetus. The fetus is in a variable presentation. There is demonstrated cardiac activity with a heart rate of 160 bpm. There is a normal amniotic fluid volume. The largest amniotic fluid pocket measures 3.1 x 2.6 cm.. The placenta is posterior and not low-lying There are Grade 0 placental changes.. There is an anechoic area adjacent to the gestational sac measuring 5.1 x 5.5 cm likely representing small bleed BIOMETRY: BPD: 2.57 cm: 14 weeks, 3 days HC: 11.42 cm: 15 weeks, 4 days AC: 8.95 cm: 15 weeks, 1 days FL: 1.26 cm: 13 weeks, 5 days Age by LMP: 13 weeks, 4 days. DANISHA by LMP: August 12, 2024. age by current US: 14 weeks, 5 days. DANISHA by current US: August 04, 2024. Estimated weight: 98 grams, +/- 15 grams, 89 percentile. US/OB Limited With Biometrics IMPRESSION: Viable intrauterine gestation approximately 14-15 weeks gestational age with probable small l bleed Recommend clinical correlation and follow-up studies. Electronically Signed: Candelario Cage MD at 19:21 EDT ,
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
[2024-02-09 18:23] LABS: Hematocrit 39.1 % (37-47); Hemoglobin 13.4 g/dL (12.0-15.0)
[2024-02-09 19:31] VITALS: BP 103/60; PULSE 95; RESP 16; TEMP 36.8; O2SAT 100
[2024-02-09 20:02] VITALS: BP 103/60; PULSE 95; RESP 16; TEMP 36.8; O2SAT 100
== END 2024-02-09 20:11 | disposition home or self-care (01) ==
PROVIDERS: Emergency Provider Emergency Medicine; Visit Provider Emergency Medicine
DX: O20.8 Other hemorrhage in early pregnancy (principal); O26.811 Pregnancy related exhaustion and fatigue, first trimester; O99.331 Smoking (tobacco) complicating pregnancy, first trimester; O09.521 Supervision of elderly multigravida, first trimester; F17.200 Nicotine dependence, unspecified, uncomplicated; Z3A.13 13 weeks gestation of pregnancy
CPT/HCPCS: 76816; 85014; 85018; 99282; A4216

== ENCOUNTER → 2024-05-21 | Outpatient (CLI) | payer MEDICAID, SELFPAY ==
[2024-05-21 12:28] LABS: Absolute Lymphocyte Count 1.62 X10^3/uL (0.83-4.51); Absolute Neutrophil Count 8.7 X10^3/uL (2.0-7.7); Basophil# 0.04 X10^3/uL; Basophil% 0.4 % (0-1); Eosinophil# 0.03 X10^3/uL; Eosinophils% 0.3 % (0-5); Hematocrit 37.6 % (37-47); Hemoglobin 12.5 g/dL (12.0-15.0); Lymphocyte # 1.62 X10^3/ul (0.83-4.51); Lymphocyte % 14.7 % (19-41); Mean Corp Hgb Conc 33.2 g/dL (32-36); Mean Corpuscular Volume 87.2 fL (81-99); Mean Platelet Vol. 10.5 fl (6.2-12.0); Monocyte# 0.54 X10^3/uL; Monocyte% 4.9 % (0-10); NRBC Flagged by Analyzer 0 % (0-5); Neutrophil # 8.66 X10^3/uL (2.7-7.7); Neutrophil % 78.5 % (47-70); Platelet Count 256 K/mm3 (150-450); RBC Distribution Width CV 13.8 % (11.6-14.6); RBC Distribution Width SD 44.4 fl (35.1-43.9); Red Blood Count 4.31 M/mm3 (4.2-5.4)
[2024-05-21 13:07] LABS: Glucose Challenge Gest 1H 50g 128 mg/dL (70-140)
[2024-05-21 13:22] LABS: HIV - WCH Non-Reactive (Nonreactive); Syphilis Antibodies Non-reactive
== END | disposition home or self-care (01) ==
LOC: LAB 11:39
PROVIDERS: Referring Provider Obstetrics & Gynecology; Visit Provider Obstetrics & Gynecology
DX: O09.90 Supervision of high risk pregnancy, unspecified, unspecified trimester (principal); Z3A.00 Weeks of gestation of pregnancy not specified
CPT/HCPCS: 36415; 82950; 85025; 86703; 86780

== ENCOUNTER → 2024-06-07 | Outpatient (CLI) | payer MEDICAID, SELFPAY ==
[2024-06-07 17:50] LABS: ROM Internal Control Test YES-OK TO RESULT pt. (Internal QC); ROM Patient Test Negative (Negative)
== END | disposition home or self-care (01) ==
PROVIDERS: Referring Provider Obstetrics & Gynecology; Visit Provider Obstetrics & Gynecology
DX: O26.899 Other specified pregnancy related conditions, unspecified trimester (principal); N89.8 Other specified noninflammatory disorders of vagina; O99.891 Other specified diseases and conditions complicating pregnancy; Z3A.00 Weeks of gestation of pregnancy not specified
CPT/HCPCS: 84112; 87070; 87205

== ENCOUNTER 2024-07-03 00:37 | Inpatient (IN) | payer MEDICAID, SELFPAY ==
[2024-07-03] VITALS (18 sets, daily range): BP systolic 90–147; BP diastolic 47–93; PULSE 60–106; RESP 14–20; TEMP 36.1–36.8; O2SAT 97–99; BMI 39.6
[2024-07-03] MEDS: Lactated Ringers 1,000 ML 999 ML IV (00:35)
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
[2024-07-03 00:50] LABS: Absolute Lymphocyte Count 2.44 X10^3/uL (0.83-4.51); Basophil# 0.05 X10^3/uL; Basophil% 0.5 % (0-1); Eosinophil# 0.04 X10^3/uL; Eosinophils% 0.4 % (0-5); Hematocrit 35.7 % (37-47); Hemoglobin 11.9 g/dL (12.0-15.0); Lymphocyte # 2.44 X10^3/ul (0.83-4.51); Lymphocyte % 23.7 % (19-41); Mean Corp Hgb Conc 33.3 g/dL (32-36); Mean Corpuscular Hgb 28.3 pg (27.0-32.0); Mean Platelet Vol. 10.4 fl (6.2-12.0); Monocyte# 0.62 X10^3/uL; NRBC Flagged by Analyzer 0 % (0-5); Platelet Count 261 K/mm3 (150-450); RBC Distribution Width CV 13.9 % (11.6-14.6); RBC Distribution Width SD 43.1 fl (35.1-43.9); White Blood Count 10.3 K/mm3 (4.4-11.0)
[2024-07-03 01:01] LABS: Fibrinogen 512 mg/dl (203-444); Prothrombin Time (Protime)PT. 13.3 SECONDS (11.7-14.9)
[2024-07-03] MEDS: Acetaminophen 500 MG Tablet PO (01:06)
[2024-07-03] MEDS: Sodium Citrate/Citric Acid 30 ML UDC PO (01:06)
[2024-07-03] MEDS: Azithromycin 500 MG in Dextrose 5%-Water (250mL Bag) 250 ML 250 MG IV (01:13)
[2024-07-03] MEDS: Cefazolin 2 GM in Syringe IV (01:22)
[2024-07-03 01:24] LABS: Syphilis Antibodies Non-reactive
--- NOTE | 2024-07-03 01:34 | FALS_PTH ---
PATIENT: XIMENA BECK LOC: [facility] U#:[id number] AGE/SX: 38/F ROOM: [facility] RE07/03/[address]: Dr. Urvashi Leonardo MD : 1985 BED: 1 DIS: 07/05/2024 SPEC #: [id number] RECD: 07/03/24 05:35 STATUS: RODRIGO REBlair #: [id number] ERIC: 07/03/24 01:[address]: Urvashi Leonardo DEPT: SURGICAL PATHOLOGY RECD BY: Lindsay Hess ENTERED: 07/03/24 07:38 SP TYPE: FALL TUBES OTHR DR: Prachi Koroma CNM No Primary Care Phys Tissues: Fallopian tube Procedures: Surgery Specimen Level II HEADER OPERATION: Tubal ligation PRE-OP DIAGNOSIS: Tubal TISSUE SUBMITTED: Bilateral fallopian tubes MICROSCOPIC DIAGNOSIS Bilateral fallopian tubes, salpingectomy: Bilateral fallopian tubes, no pathologic diagnosis. Focal paratubal cyst present in left fallopian tube. FA: 07/04/2024 MICROSCOPIC DESCRIPTION Slides are reviewed. GROSS DESCRIPTION Received in fixative is one container labeled with the patient's name and designated bilateral fallopian tubes - stitch in left tube. The specimen consists of bilateral fallopian tubes including fimbrial ends. Right fallopian tube measures 6.5cm in length and 0.7cm in diameter and left fallopian tube measures 6.0 cm in length and 0.7 cm in diameter. Sections reveal unremarkable cut surfaces. Forklift Supervisor sections are submitted in two cassettes: 1- right fallopian tube, 2- left fallopian tube. / SJ: 07/03/2024 TC:5 CPT: 39348 x2
--- NOTE | 2024-07-03 02:06 | OP.PCM_ITS ---
Maternal Data Information DANISHA Calculator Estimated Delivery Date Method Current WG Current Estimate 08/12/24 LMP (Certain) 34w 2d Operative Report (OB) Cecarean Details Procedure Type: low transverse (and bilateral salpingectomy) Surgeon: Urvashi Leonardo Date of Procedure: 07/03/24 Procedure Start Time: 01:32 Procedure Stop Time: 02:08 Pre-Operative Diagnosis: Other Other Pre-Operative diagnosis: see a/p comments Post-Operative Diagnosis: Same as Pre-operative diagnosis Classification: Scheduled Type of Anesthesia: Spinal Special Medications: none Antibiotic Given: Ancef 2 grams IV x1 Drain: Cullen to straight drain Estimated Blood Loss: 900 Fluids Replaced: crystalloid Findings Description of surgery: Spinal anesthesia was placed without difficulty. Cullen catheter was placed. The patient was placed in the dorsal supine position with leftward tilt. Patient was prepped and draped in the normal sterile fashion. Pfannenstiel skin incision was made with the scalpel and carried through to the underlying layer of fascia with the scalpel. Fascia was nicked in the midline and the incision extended laterally. The rectus bellies were dissected off superiorly and inferiorly with out complication both sharply and bluntly. The peritoneum was entered digitally. The incision was stretched and a low transverse uterine incision was made with the scalpel. wine colored fluid noted at ROM. The 's head was delivered atraumatically followed by the anterior and posterior shoulders without complication the rest of the delivered. The cord was clamped and cut and the infant was handed off to awaiting nurse. The placenta was delivered spontaneously immediately following and was noted to be intact and have a three-vessel cord have a 10-15% peripheral abruption with 200cc retroplacental clot. The uterus was exteriorized cleared of all clots and debris, and the incision was closed in a single layer closure using #1 Monocryl. The ovaries and fallopian tubes were noted to be WNL. Patient had desired sterilization and was counseled preoperatively regarding irreversibility and permanency. Therefore bilateral fallopian tubes were elevated and transected across using a LigaSure device starting proximally to distally without complication the entire fallopian tubes were removed. The uterus was returned to the maternal abdomen and gutters were cleared of all clots and debris. The peritoneum was closed with 3-0 Monocryl in a running fashion. Gloves were changed prior to fascial closure. Fascia was closed with 0 PDS in a running fashion. Subcutaneous tissue was copiously irrigated and the skin was closed with 3-0 Monocryl in a subcuticular fashion. Mepilex dressing was applied without complication. Patient was taken to recovery in stable condition. 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
[2024-07-03] MEDS: Oxytocin 15 Units/NS 250ml 15 UNITS/250 ML IV.SOLN 83 UNITS IV (02:30)
[2024-07-03] MEDS: Ketorolac 30 MG/ML Syringe IV ×4 (03:20→23:02)
[2024-07-03 05:36] LABS: Pathology Specimen OB SEE PATHOLOGY REPORT
[2024-07-03] MEDS: Acetaminophen 500 MG Tablet 1000 MG PO ×3 (06:58→18:32)
[2024-07-03] MEDS: Senna/Docusate Sodium 1 Tablet PO (10:48)
--- NOTE | 2024-07-03 11:44 | DCINST_ITS ---
Discharge Instructions Diet Discharge Diet: No restrictions Activity Discharge Activity: May Not Drive (for 2 weeks or while taking narcotic pain medications.), May Shower and May Take a Tub Bath (in 7 days) May shower in (days): 0 May resume sexual activity in: 4-6 weeks Weight Bearing Status: Full weight bearing Lifting Restrictions: 20 pounds Dressing / Incision Call your doctor if your incision/area has: Continuous Slow Oozing, Sudden Increased Bleeding, Increased Pain/ Swelling, Increased Redness and Foul Smelling Discharge Call your doctor if you observe: Fever of 101 or Higher and Using more than 1 pad per hour (for 2 hours) Suture Line Care: Avoid Pulling/Pushing and Avoid Pinching/Bending Cleanse incision/area with: Soap & Water and Keep Dressing Clean & Dry Follow Up Care Please Follow Up With: Urvashi Leonardo MD When: Call [phone] to make an appointment for an incision check in 1-2 weeks. Test Results: Test results from this visit will be discussed in further detail at your follow- up appointment, if applicable. Discharge Plan Admission Admit Date/Time: 07/03/24 00:37 Attending Provider: Urvashi Leonardo Primary Care Provider: Care Physician,Mouna Primary Discharge Orders/Prescriptions Prescriptions: No Action PNV-DHA 27 mg iron-1 mg -300 mg capsule 1 cap PO DAILY omeprazole 20 mg capsule,delayed release(DR/EC) 20 mg PO DAILY PRN (Reason: gerd) Qty: 60 6RF hydroxyzine pamoate [Vistaril] 25 mg capsule 25 mg PO QHS Qty: 30 3RF sertraline 100 mg tablet 100 mg PO DAILY Qty: 30 3RF Referrals / Follow Up: Care Physician,No Primary [Primary Care Provider] -
[2024-07-03] MEDS: Enoxaparin 40 MG/0.4 ML Syringe SC (14:24)
[2024-07-03] MEDS: 0.9% Saline Lock 10 ML Syringe IV (23:01)
[2024-07-04] MEDS: Acetaminophen 500 MG Tablet 1000 MG PO ×4 (01:18→19:06)
[2024-07-04 04:00] VITALS: BP 95/57; PULSE 72; RESP 16; TEMP 36.7; O2SAT 99
[2024-07-04] MEDS: Naproxen 500 MG Tablet PO ×3 (04:32→20:28)
[2024-07-04 04:45] LABS: Hematocrit 28.8 % (37-47); Hemoglobin 9.6 g/dL (12.0-15.0); Mean Corp Hgb Conc 33.3 g/dL (32-36); Mean Corpuscular Hgb 28.4 pg (27.0-32.0); Mean Corpuscular Volume 85.2 fL (81-99); Mean Platelet Vol. 10.3 fl (6.2-12.0); Platelet Count 183 K/mm3 (150-450); Red Blood Count 3.38 M/mm3 (4.2-5.4); White Blood Count 7.7 K/mm3 (4.4-11.0)
[2024-07-04 08:10] VITALS: BP 124/76; PULSE 99; RESP 16; TEMP 36.5; O2SAT 99
--- NOTE | 2024-07-04 08:37 | PCM.PN.OB ---
Subjective Subjective Patient doing well without complaints. Tolerating PO. Ambulating and voiding without difficulty. feeding well. Denies chest pain, shortness of breath, calf pain/swelling, fevers, chills, lightheadedness. Objective Data Objective Data Vital Signs: Vital Signs Temp Pulse Resp BP Pulse Ox O2 Del Method 98.1 F 72 16 95/57 L 99 Room Air 07/04/24 04:00 07/04/24 04:00 07/04/24 04:00 07/04/24 04:00 07/04/24 04:00 07/04/24 04:00 Oxygen Delivery Method Room Air Weight: 246 lb Body Mass Index (BMI) 39.6 Intake & Output: Intake and Output for Last 24 Hours 07/02/24 07/03/24 07/04/24 23:59 23:59 23:59 Intake Total 1525 / 1525 Output Total 2350 / 2350 Balance -825 / -825 Lab / Micro Data 07/04/24 04:33 Labs: Laboratory Results - last 24 hr 07/04/24 04:33: WBC 7.7, RBC 3.38 L, Hgb 9.6 L, Hct 28.8 L, MCV 85.2, MCH 28.4, MCHC 33.3, RDW Std Deviation 43.0, RDW Coeff of Kayley 14.0, Plt Count 183, MPV 10.3 ROS Constitutional Constitutional: Reports systems reviewed and no addt'l complaints, except as documented Cardiovascular Cardiovascular: Reports systems reviewed and no addt'l complaints, except as documented Respiratory/Chest Respiratory/Chest: Reports systems reviewed and no addt'l complaints, except as documented Gastrointestinal Gastrointestinal: Reports systems reviewed and no addt'l complaints, except as documented Physical Exam Const alert, oriented x3 and no apparent distress HEENT Head and Scalp: atraumatic Resp normal respiratory effort GI soft to palpation and non-tender Inspection: incision intact, healing well and drainage (none) Bimanual Exam - Vag & Uterus: uterus non-tender Uterus Palpation: uterus fundus firm (below Umbilicus) Assessment & Plan (1) delivery delivered: COMMENT: ANGÉLICA castillo 34 abruptiong LTCS BS PLAN: Plan s/p LTCS PPD # 1 1. routine post care 2. breast feeding- support given 3. rh positive 4. rubella immune
[2024-07-04] MEDS: Senna/Docusate Sodium 1 Tablet PO (08:50)
[2024-07-04] MEDS: Enoxaparin 40 MG/0.4 ML Syringe SC (15:44)
[2024-07-04 15:48] VITALS: BP 113/77; PULSE 86; RESP 16; TEMP 36.4; O2SAT 99
[2024-07-04 20:30] VITALS: BP 126/76; PULSE 102; RESP 16; TEMP 36.3; O2SAT 99
[2024-07-05] VITALS: BP 115/71; PULSE 92; RESP 16; TEMP 36.6; O2SAT 96
[2024-07-05] MEDS: Acetaminophen 500 MG Tablet 1000 MG PO ×2 (00:58→09:00)
[2024-07-05] MEDS: Naproxen 500 MG Tablet PO ×2 (04:19→12:27)
[2024-07-05 09:00] VITALS: BP 118/88; PULSE 90; RESP 16; TEMP 36.4; O2SAT 99
[2024-07-05 12:25] VITALS: BP 118/77; PULSE 86; RESP 16; TEMP 36.4; O2SAT 99
--- NOTE | 2024-07-05 12:58 | PN.OBGYN_ITS ---
Subjective Subjective Patient is laying in bed comfortably without complaints. She states that she slept on an off during the night. Lochia is mild and pain is minimal. Objective Data Objective Data Vital Signs: Vital Signs Temp Pulse Resp BP Pulse Ox O2 Del Method 97.6 F L 86 16 118/77 99 Room Air 07/05/24 12:25 07/05/24 12:25 07/05/24 12:25 07/05/24 12:25 07/05/24 12:25 07/05/24 12:25 Oxygen Delivery Method Room Air Weight: 246 lb Body Mass Index (BMI) 39.6 Intake & Output: Intake and Output for Last 24 Hours 07/03/24 07/04/24 07/05/24 23:59 23:59 23:59 Intake Total 1525 / 1525 Output Total 2350 / 2350 Balance -825 / -825 Lab / Micro Data 07/04/24 04:33 ROS Constitutional Constitutional: Reports systems reviewed and no addt'l complaints, except as documented Cardiovascular Cardiovascular: Denies chest pain, dizziness, dyspnea or irregular heart rhythm Respiratory/Chest Respiratory/Chest: Denies cough, pain on inspiration or shortness of breath at rest Gastrointestinal Gastrointestinal: Denies abdominal pain, nausea or vomiting Genitourinary Genitourinary: Denies burning urination Musculoskeletal Musculoskeletal: Denies muscle cramps, muscle spasms or muscle weakness Neurologic Neurologic: Denies confusion, dizziness, headache(s) or lack of coordination Psychiatric Psychiatric: Denies anxiety, behavioral changes or depression Physical Exam HEENT normocephalic Resp normal respiratory effort and normal air movement GI soft to palpation, non-tender and non-distended Rectal Exam: other Other Details: Incision is clean, dry, and intact no CVA tenderness Extremity normal to inspection General Extremity: edema bilateral (trace ) Assessment & Plan (1) delivery delivered: COMMENT: ANGÉLICA castillo 34 abruptiong LTCS BS (2) Vaginal bleeding during : (3) Placental abruption in third trimester: (4) Obesity affecting : COMMENT: discussed testing (5) AMA (advanced maternal age) multigravida 35+: COMMENT: plan IOL 39 weeks, discussed testing recommend weekly nsts 34 weeks and growth US q 4 weeks due to multiple comorbidities (6) Abnormal genetic test during : COMMENT: NORMAL AMNIO-false positive NIPT. high risk for trisomy 21 on mike. MFM consulted. see AMA screening recs (7) History of kidney infection: (8) Supervision of high-risk : QUALIFIERS: Trimester: second trimester Qualified Code(s): O09.92 - Supervision of high risk , unspecified, second trimester COMMENT: PRR , DANISHA 08/12/24, PC Vlad Gaming Declan, Pollo (9) History of miscarriage, currently : COMMENT: x3 (10) : QUALIFIERS: Weeks of gestation: 32 weeks Qualified Code(s): Z 3A.32 - 32 weeks gestation of COMMENT: nl amnio high risk NIPT, carrier and afp declined. anatomy reviewed. (11) Depression: QUALIFIERS: Depression Type: unspecified Qualified Code(s): F32.A - Depression, unspecified COMMENT: zoloft follow up in 4 weeks. PSI and counseling form provided. (12) HPV in female: COMMENT: + HPV needs repeat pap 11/2021, colp (13) Anxiety: COMMENT: had stopped the zoloft-ran out. reordered and counseling encouraged. (14) Contraceptive management: QUALIFIERS: Contraceptive encounter type: other general counseling and advice Qualified Code(s): Z30.09 - Encounter for other general counseling and advice on contraception COMMENT: Wants depo while in [place] and then Tino salping 6-8 wk pp (15) High risk due to smoking: PLAN: Plan s/p LTCS PPD # 2 1. routine post care 2. breast feeding- support given- baby is in nicu 3. rh positive 4. rubella immune 5. smoking cessation encouraged 6. dc to hotel status today
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
== END 2024-07-05 12:57 | disposition home or self-care (01) | DRG 539 ==
LOC: WPOUT 05:42 → WP 05:42
PROVIDERS: Admitting Provider Advanced Practice Midwife; Visit Provider Obstetrics & Gynecology
DX: O45.93 Premature separation of placenta, unspecified, third trimester (principal); F17.210 Nicotine dependence, cigarettes, uncomplicated; F32.A Depression, unspecified; O99.214 Obesity complicating childbirth; F41.9 Anxiety disorder, unspecified; Z30.2 Encounter for sterilization; O99.344 Other mental disorders complicating childbirth; O36.8130 Decreased fetal movements, third trimester, not applicable or unspecified; O99.334 Smoking (tobacco) complicating childbirth; Z79.899 Other long term (current) drug therapy; Z3A.32 32 weeks gestation of pregnancy; Z37.0 Single live birth
CPT/HCPCS: 59025; 59050; 76815; 85025; 85027; 85384; 85610; 86780; 86850; 86900; 86901; 88302; 99221; J7120; A4216; G0378; J2405

== ENCOUNTER → 2024-08-17 | Outpatient (CLI) | payer MEDICAID, SELFPAY ==
[2024-08-21 20:07] LABS: HPV APTIMA, High Risk Positive (Negative); HPV Genotype 16, Aptima Negative (Negative); HPV Genotype 18,45 Aptima Negative (Negative)
== END | disposition home or self-care (01) ==
LOC: LABSPEC 11:33
PROVIDERS: Referring Provider Obstetrics & Gynecology; Visit Provider Obstetrics & Gynecology
DX: Z12.4 Encounter for screening for malignant neoplasm of cervix (principal)
CPT/HCPCS: 87624; 88175; G0145

== ENCOUNTER → 2024-09-28 | Outpatient (CLI) | payer MEDICAID, SELFPAY ==
--- NOTE | 2024-09-28 | IMM_PTH ---
PATIENT: XIMENA BECK LOC: [facility] U#:[id number] AGE/SX: 38/F ROOM: RE09/28/[address]: Dr. Bianca Fong DO : 1985 BED: DIS: 09/28/2024 SPEC #: [id number] RECD: 10/02/24 11:28 STATUS: RODRIGO REQ #: [id number] ERIC: 09/28/24 00:[address]: Bianca Fong DEPT: IMMUNOHISTOCHEMISTRY RECD BY: Sourav Olivo ENTERED: 10/02/24 11:29 SP TYPE: IMMUNO OTHR DR: Mouna Primary Care Phys Tissues: B - Uterine cervix, NOS Procedures: p16 (initial) KI-67 (add) PHYSICIAN & INSTITUTION [address] [address] SPECIMEN INFORMATION: Tissue Source: B- 11o'clock Clinical Info: HPV+ Specimen Number: [id number] CPT code: 60657,18412 METHODOLOGY: Deparaffinized sections of prefer/formalin-fixed tissue or PAP/DQ stained slides are incubated with monoclonal/polyclonal antibodies/oligonucleotide probes. Localization is made via biotin free immunoperoxidase method. Appropriate controls are performed and reacted as expected. Results on target cell population are indicated in the following table: RESULTS: ANTIBODY / CLONE RESULT Block B P16 (E6H4) positive, focal block staining Ki-67 (30-9) positive, moderate These tests were developed and their performance characteristics determined by [facility]. They may not have been cleared or approved by the U.S. Food and Drug Administration. The FDA has determined that such clearance or approval is not necessary. The above immunohistochemical/dualISH markers are ordered and reviewed by the Pathologist. 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 SJ.mr 10/03/2024
--- NOTE | 2024-09-28 14:25 | ECC_PTH ---
PATIENT: XIMENA BECK [id number] AGE/SX: 38/F ROOM: RE09/28/[address]: Dr. Bianca Fong DO : 1985 BED: DIS: 09/28/2024 SPEC #: [id number] RECD: 09/28/24 16:01 STATUS: RODRIGO LORNA #: [id number] ERIC: 09/28/24 14:[address]: Bianca Fong DEPT: SURGICAL PATHOLOGY RECD BY: Venkat Giles ENTERED: 10/01/24 09:41 SP TYPE: ECC DELMA DR: No Primary Care Phys Tissues: A - Endocervical B - Uterine cervix, NOS Procedures: Surgery Specimen Level IV HEADER OPERATION: Colposcopy PRE-OP DIAGNOSIS: HPV+ TISSUE SUBMITTED: A- SHEILA B- 11o'clock MICROSCOPIC DIAGNOSIS A. Endocervical curettings: Fragments of benign endocervical epithelium. Desquamated benign squamous epithelial cells and endocervical epithelial cells. Negative for dysplasia. B. Cervix, 11o'clock, biopsy: Focal mild and moderate squamous dysplasia with HPV changes (HGSIL,ANGELA I-II). Acute and chronic inflammation and squamous metaplasia. See comment. 10/02/2024 COMMENT B. Immunohistochemistry ([id number]) for surrogate HPV marker (p16) supports the above diagnosis. MICROSCOPIC DESCRIPTION Slides are reviewed. GROSS DESCRIPTION A. Received in fixative is one container labeled with the patient's name and designated ECC. The specimen consists of a scant amount of soft tissue. The specimen is totally submitted for cell block preparation. B. Received in fixative is one container labeled with the patient's name and designated 11o'clock. The specimen consists of a piece of frank soft tissue measuring 0.5 x 0.5 x 0.1cm. The entire specimen is submitted in one cassette. 10/01/2024 TC:5 CPT:81773p8
== END | disposition home or self-care (01) ==
LOC: LABSPEC 15:40
PROVIDERS: Referring Provider Obstetrics & Gynecology; Visit Provider Obstetrics & Gynecology
DX: N87.1 Moderate cervical dysplasia (principal)
CPT/HCPCS: 88305; 88341; 88342

== ENCOUNTER 2024-10-23 13:00 | Day surgery (SDC) | payer MEDICAID, SELFPAY ==
[2024-10-23] VITALS (7 sets, daily range): BP systolic 84–109; BP diastolic 61–71; PULSE 73–83; RESP 14–18; TEMP 36.3–36.7; O2SAT 95–96; BMI 37.7
[2024-10-23 13:43] LABS: Hematocrit 38.8 % (37-47); Hemoglobin 12.7 g/dL (12.0-15.0); Mean Corp Hgb Conc 32.7 g/dL (32-36); Mean Corpuscular Volume 82.4 fL (81-99); Mean Platelet Vol. 10.1 fl (6.2-12.0); Platelet Count 292 K/mm3 (150-450); RBC Distribution Width CV 14.5 % (11.6-14.6); RBC Distribution Width SD 43.9 fl (35.1-43.9); Red Blood Count 4.71 M/mm3 (4.2-5.4); White Blood Count 8.2 K/mm3 (4.4-11.0)
[2024-10-23 14:15] LABS: Internal QC Validated? YES +Cl - CLEAR BKGD; Pregnancy, Serum, hCG Quali. NEGATIVE Negative
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
--- NOTE | 2024-10-23 14:50 | CONE_PTH ---
PATIENT: XIMENA BECK LOC: [facility] U#:[id number] AGE/SX: 38/F ROOM: RE10/23/[address]: Dr. Bianca Fong DO : 1985 BED: DIS: 10/23/2024 SPEC #: [id number] RECD: 10/24/24 10:41 STATUS: RODRIGO REBlair #: [id number] ERIC: 10/23/24 14:[address]: Bianca Fong DEPT: SURGICAL PATHOLOGY RECD BY: Sourav Olivo ENTERED: 10/24/24 10:41 SP TYPE: Leep Cone OT DR: Mouna Primary Care Phys Tissues: UTERINE CERVIX LEEP Procedures: Immunohistochemical Stains Surgery Specimen Level V IHC Stain ADDITIONAL HEADER OPERATION: LEEP cone PRE-OP DIAGNOSIS: Abnormal Pap smear, high risk HPV infection TISSUE SUBMITTED: Cervical LEEP suture = 12o'clock MICROSCOPIC DIAGNOSIS CERVIX, LEEP CONE BIOPSY: * Focal high grade JODY, not involving the surgical margins - see note. * Atypical squamous metaplasia with active chronic inflammation is present at the endocervical surgical margin, favor a reactive process. Note: IHC for p16 was performed on A1, A2, A3, A4. There are foci of p16 block positivity noted in the 12-3:00 and 3-6:00 quadrants, consistent with high grade JODY (CIN2), and correlating with the history of high grade JODY. MICROSCOPIC DESCRIPTION Slides are reviewed. These tests were developed and their performance characteristics determined by [facility]. They may not have been cleared or approved by the U.S. Food and Drug Administration. The FDA has determined that such clearance or approval is not necessary. The above immunohistochemical/dualISH markers are ordered and reviewed by the Pathologist. GROSS DESCRIPTION The specimen is received in one container labeled with the patient's name and designated Cervical Leep, suture=12:00. The specimen consists of a 2.3 x 2.2 x 1.0 cm cervical LEEP specimen, which has the 10-12 o'clock area detached from the rest of the LEEP. The 10-12 o'clock segment measures 1.1 x 0.8 x 0.3 cm. The ectocervical mucosa is granular and pink from 4-6 o'clock, but otherwise white and shiny. The ectocervical margin and deep margins are inked blue and the endocervical margin is inked orange. TE4. 10/24/24. Cassette summary: A1-12-3:00 quadrant A2- 3-6:00 quadrant A3- 6-9:00 quadrant A4- 9-12:00 quadrant CPT:02924,52923,72183h4
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
--- NOTE | 2024-10-23 15:33 | PCM.DC ---
Discharge Instructions Diet Discharge Diet: No restrictions DC O2, CPAP, BIPAP needs Home O2 Discharge instructions: No Dressing / Incision Discharge Activity: Return to Normal Activity and [address] Drive (while taking narcotic pain mediations.) May resume sexual activity in: 4 weeks (Nothing in the vagina for 4 weeks.) Dressing / Incision Call your doctor if you observe: Fever of 101 or Higher and Using more than 1 pad per hour Follow Up Care Please Follow Up With: Bianca Fong DO When: Call [phone] for follow-up appointment. Test Results: Test results from this visit will be discussed in further detail at your follow-up appointment, if applicable. Discharge Plan Admission Primary Reason for Your Visit: LEELeida Attending Provider: Bianca Fong Primary Care Provider: Care PhysicianMouna Primary Instructions Print Language: Lithuanian Discharge Orders/Prescriptions Prescriptions: New ibuprofen 800 mg tablet 800 mg PO Q8H PRN (Reason: pain) Qty: 30 0RF Continued sertraline 100 mg tablet 150 mg PO DAILY Qty: 45 12RF omeprazole 20 mg capsule,delayed release(DR/EC) 20 mg PO DAILY PRN (Reason: gerd) Referrals / Follow Up: Care Physician,No Primary [Primary Care Provider] - Disposition Disposition (needs filled in before D/C Order can be placed): Home, Self Care
[2024-10-23] MEDS: Lidocaine 1% /Epi 1:100 (20ml) 20 ML Vial (16:00)
[2024-10-23] MEDS: Iodine/Potassium Iodide 14ML Bottle 1 DRP TOPICAL (16:05)
[2024-10-23] MEDS: FERRIC SUBSULFATE 8 GM SOLN (16:05)
--- NOTE | 2024-10-23 16:13 | OP.PCM_ITS ---
Problems Associated Problem List Diagnoses (1) High risk HPV infection: (2) ANGELA II (cervical intraepithelial neoplasia II): Multi Select Codes Urinary/Genital Urinary/Genital CPT Codes: 68903 LEEP Operative Report (Standard) Operative Information Date of Procedure: 10/23/24 Pre-Operative Diagnosis: Cervical ANGELA II Post-Operative Diagnosis: Cervical ANGELA II Surgery/Procedure Performed: LEEP garbage collector: No Type of Anesthesia: MAC RN Documented Start/Stop Times: Operation Date: 10/23/24 14:50 Case Time Into Pre-Op 10/23/24 13:10 Out of Pre-Op 10/23/24 15:44 Anesthesia Start 10/23/24 15:49 Into Room 10/23/24 15:49 Procedure Start 10/23/24 16:06 Procedure End 10/23/24 16:10 Procedure Start Time: 16:06 Procedure Stop Time: 16:10 Select all DRAINS/GRAFTS/IMPLANTS that apply: None Estimated Blood Loss: 3cc Specimen collected: Yes Description of specimen(s) removed: Loop electrocautery excisional procedure specimen (cervical biopsy) Description of surgery: Patient was taken to the operating room and placed under MAC anesthesia prepped and draped in normal sterile fashion the dorsal lithotomy position. Paracervical block was placed with 1% lidocaine and using a loop electrode the outer part of the cervix was removed including the squamocolumnar junction. The cervix was cauterized around the borders and the base to obtain excellent hemostasis. Monsel's paste was placed and patient was awoken and taken recovery in stable condition. Surgical Findings: normal grossly appearing cervix Complications Complications: No Admit VTE Documentation VTE Present on Admission: No VTE Mechan Device Prophylaxis: [facility] [place] Prophylaxis ordered?: No
--- NOTE | 2024-10-23 16:24 | PCM.POST.ANE ---
Anesthesia: Postop Eval I Current Vital Signs Temperature: 97.4 F Pulse Rate: 74 Blood Pressure: 95/61 Respiratory Rate: 18 Pulse Ox: 95 Oxygen Delivery Method: Room Air Assessment Airway patent: Yes Spontaneous unlabored respirations: Yes Mental status: Awake and Calm nausea: No Vomiting: No Anesthesia Complication: No Fluid Hydration Crystalloid volume administer (ml): 10 Total IV fluid infused: 10 Progress Note Anesthesia document: Postop Eval 1 completed: Yes
--- NOTE | 2024-10-23 17:09 | POSTOPAN2_ITS ---
Anesthesia Postop Eval I Sum Postop Eval Completion status Anesthesia document: Postop Eval 1 completed: Yes Anesthesia Postop Eval I Summary Anesthesia Postop Eval I Summary: Anesthesia Postop Eval I: Assessment Summary Airway patent Yes 10/23/24 16:25 [email or web address] Spontaneous unlabored Yes 10/23/24 16:25 [email or web address] respirations Mental status Awake,Calm 10/23/24 16:25 [email or web address] nausea No 10/23/24 16:25 [email or web address] Vomiting No 10/23/24 16:25 [email or web address] Anesthesia Postop Eval I: Fluid Summary Crystalloid volume administer 10 10/23/24 16:25 [email or web address] (ml) Colloids volume administered ( ml) Blood Product volume administered (ml) Total IV fluid infused 10 10/23/24 16:25 [email or web address] Anesthesia Postop Eval I: Summary Notes Anesthesia Complication No 10/23/24 16:25 [email or web address] Anesthesia Complication Comment: Post-operative progress note Anesthesia: Postop Eval II Evaluation Mental status: Awake Pain Level: 0 nausea: No Vomiting: No Complications Anesthesia Complication: No
--- NOTE | 2024-10-23 17:09 | PCM.POSTANE2 ---
Anesthesia Postop Eval I Sum Postop Eval Completion status Anesthesia document: Postop Eval 1 completed: Yes Anesthesia Postop Eval I Summary Anesthesia Postop Eval I Summary: Anesthesia Postop Eval I: Assessment Summary Airway patent Yes 10/23/24 16:25 [email or web address] Spontaneous unlabored Yes 10/23/24 16:25 [email or web address] respirations Mental status Awake,Calm 10/23/24 16:25 [email or web address] nausea No 10/23/24 16:25 [email or web address] Vomiting No 10/23/24 16:25 [email or web address] Anesthesia Postop Eval I: Fluid Summary Crystalloid volume administer 10 10/23/24 16:25 [email or web address] (ml) Colloids volume administered ( ml) Blood Product volume administered (ml) Total IV fluid infused 10 10/23/24 16:25 [email or web address] Anesthesia Postop Eval I: Summary Notes Anesthesia Complication No 10/23/24 16:25 [email or web address] Anesthesia Complication Comment: Post-operative progress note Anesthesia: Postop Eval II Evaluation Mental status: Awake Pain Level: 0 nausea: No Vomiting: No Complications Anesthesia Complication: No
== END 2024-10-23 16:57 | disposition home or self-care (01) ==
LOC: SDC 13:00 → AC 13:02
PROVIDERS: Referring Provider Obstetrics & Gynecology; Visit Provider Obstetrics & Gynecology
PROC: 0UBC7ZZ Excision of Cervix, Via Natural or Artificial Opening (ICD-10-PCS; CPT 57522; principal; 2024-10-23 14:35)
DX: N87.1 Moderate cervical dysplasia (principal); K21.9 Gastro-esophageal reflux disease without esophagitis; F17.210 Nicotine dependence, cigarettes, uncomplicated; Z79.899 Other long term (current) drug therapy
CPT/HCPCS: 57522; 84703; 85027; 86850; 86900; 86901; 88307; 88341; 88342; J2405